=== PATIENT | female | born 1960 | race Caucasian/White ===

== ENCOUNTER 2022-07-11 04:20 | Inpatient (IN) ==
--- NOTE | 2022-07-11 04:40 | Emergency Department Note ---
ED Provider Note History of Present Illness Chief Complaint: Chest Pain Stated Complaint: CHEST PAIN Time Seen by Provider: 07/11/22 04:25 Source: patient Mode of arrival: ambulatory Limitations: no limitations This patient is a 62-year-old female who presents to the emergency department for evaluation of chest pain. Patient states that she was sitting in a chair when she developed midsternal chest pain with radiation to her left shoulder and left arm. She rates her current discomfort a 6/10 and states it feels like a pressure. Symptoms have been constant. She states that she feels like there is a band around her upper abdomen into her back. She tried Pepcid and Gas-X without relief. She has noticed some swelling in the lower extremities. She denies dizziness, nausea, shortness of breath or diaphoresis. Patient denies any cardiac history. She is on a diuretic and Topamax for weight loss. Home Medications Medication Instructions Recorded Confirmed Type cetirizine 10 mg tablet (Zyrtec) 10 mg PO DAILY PRN Allergy Symptoms 05/13/18 07/11/22 History fluticasone propionate 50 2 spray intranasal DAILY PRN 05/13/18 07/11/22 History mcg/actuation nasal Allergy Symptoms spray,suspension (Flonase Allergy Relief) spironolactone 25 mg tablet 25 mg PO BID 07/11/22 07/11/22 History topiramate 25 mg tablet 25 mg PO BID 07/11/22 07/11/22 History Allergies Allergy/AdvReac Type Severity Reaction Status Date / Time No Known Allergies Allergy Unknown Verified 07/11/22 07:27 Past Med/Surg History Medical History (Updated 07/14/22 @ 21:01 by Sera Helton PA-C) Acute cholecystitis Dermatitis Seasonal allergies Social History Smoking Status: Never smoker Hx Alcohol Use: Yes Alcohol type: beer, wine and hard liquor Hx Substance Use: No Preferred Language: Chinese Communication Ability: Effective It Risk Analyst Required: No Beliefs That Will Affect Care: None Current Living Situation: Spouse current occupational status: employed Other Information That Helps Us Care for You: No Feels Safe at Home: Yes Assistive Devices: None Physical Exam Vital Signs Vital Signs - 24 hr 07/13/22 21:09 07/13/22 21:10 07/13/22 21:00 Temperature 37.6 C H Temperature Source Oral Pulse Rate 92 H Pulse Rate [Left Finger] 86 Respiratory Rate 16 16 Respiratory Effort / Characteristics Respiratory Depth Respiratory Pattern Blood Pressure 127/75 Blood Pressure [Left Arm] 127/76 Blood Pressure Mean 92 Blood Pressure Mean [Left Arm] 93 Blood Pressure Position Lying Blood Pressure Position [Left Arm] Pulse Oximetry 98 96 Oxygen Delivery Method Nasal Cannula Oxygen Flow Rate 2 2.0 EWS Level of Consciousness - Last Result Spontaneously Alert EWS Temperature - Last Result 37.3 EWS Respiratory Rate - Last Result 16 EWS Oxygen Saturation - Last Result 98 EWS Oxygen in Use - Last Result Yes EWS Score 0 EWS Clinical Risk Low Risk 07/13/22 22:30 07/13/22 23:43 07/13/22 23:43 Temperature 37.6 C H 37.3 C 37.3 C Temperature Source Oral Oral Oral Pulse Rate 92 H 91 H 91 H Pulse Rate [Left Finger] Respiratory Rate 16 16 16 Respiratory Effort / Characteristics Respiratory Depth Respiratory Pattern Blood Pressure 129/76 119/72 119/72 Blood Pressure [Left Arm] Blood Pressure Mean 93 87 87 Blood Pressure Mean [Left Arm] Blood Pressure Position Lying Blood Pressure Position [Left Arm] Pulse Oximetry 96 95 95 Oxygen Delivery Method Oxygen Flow Rate 2.0 2 2 EWS Level of Consciousness - Last Result EWS Temperature - Last Result EWS Respiratory Rate - Last Result EWS Oxygen Saturation - Last Result EWS Oxygen in Use - Last Result EWS Score EWS Clinical Risk 07/14/22 01:06 07/14/22 01:09 07/14/22 01:56 Temperature 37.1 C Temperature Source Oral Pulse Rate Pulse Rate [Left Finger] 88 85 Respiratory Rate 16 16 Respiratory Effort / Characteristics Respiratory Depth Respiratory Pattern Blood Pressure Blood Pressure [Left Arm] 103/65 112/72 Blood Pressure Mean Blood Pressure Mean [Left Arm] 77 85 Blood Pressure Position Blood Pressure Position [Left Arm] Pulse Oximetry 94 95 Oxygen Delivery Method Nasal Cannula Nasal Cannula Oxygen Flow Rate 2 2 EWS Level of Consciousness - Last Result Spontaneously Alert EWS Temperature - Last Result 37.1 EWS Respiratory Rate - Last Result 16 EWS Oxygen Saturation - Last Result 94 EWS Oxygen in Use - Last Result Yes EWS Score 2 EWS Clinical Risk Low Risk 07/14/22 04:35 07/14/22 06:05 07/14/22 07:19 Temperature 37.7 C H Temperature Source Oral Pulse Rate Pulse Rate [Left Finger] 85 85 84 Respiratory Rate 16 16 18 Respiratory Effort / Characteristics Respiratory Depth Respiratory Pattern Blood Pressure Blood Pressure [Left Arm] 114/74 117/73 117/74 Blood Pressure Mean Blood Pressure Mean [Left Arm] 87 87 88 Blood Pressure Position Blood Pressure Position [Left Arm] Lying Pulse Oximetry 95 94 94 Oxygen Delivery Method Nasal Cannula Nasal Cannula Nasal Cannula Oxygen Flow Rate 2 2 2 EWS Level of Consciousness - Last Result EWS Temperature - Last Result EWS Respiratory Rate - Last Result EWS Oxygen Saturation - Last Result EWS Oxygen in Use - Last Result EWS Score EWS Clinical Risk 07/14/22 07:20 07/14/22 07:33 Temperature Temperature Source Pulse Rate Pulse Rate [Left Finger] Respiratory Rate Respiratory Effort / Characteristics Non-Labored Spontaneous Respiratory Depth Normal Respiratory Pattern Regular Blood Pressure Blood Pressure [Left Arm] Blood Pressure Mean Blood Pressure Mean [Left Arm] Blood Pressure Position Blood Pressure Position [Left Arm] Pulse Oximetry Oxygen Delivery Method Nasal Cannula Oxygen Flow Rate 2 EWS Level of Consciousness - Last Result Spontaneously Alert EWS Temperature - Last Result 37.7 EWS Respiratory Rate - Last Result 18 EWS Oxygen Saturation - Last Result 94 EWS Oxygen in Use - Last Result Yes EWS Score 1 EWS Clinical Risk Low Risk VITALS: Vitals are noted on the nurse's note and reviewed by myself. Vital signs stable. GENERAL: This is a 62-year-old, in no acute distress, nondiaphoretic, well- developed well-nourished. SKIN: The skin was without rashes. EYES: Pupils equal round and reactive to light and accommodation. No scleral icterus. MOUTH: Mucous membranes moist. Tonsils are not enlarged. Pharynx without erythema or exudate. NECK: Supple without nuchal rigidity. No lymphadenopathy. HEART: Regular rate and rhythm without murmurs gallops or rubs. LUNGS: Clear to auscultation bilaterally without wheezes, rales or rhonchi. No retractions or accessory muscle use. ABDOMEN: Positive bowel sounds x 4. Soft, tenderness to palpation across upper abdomen. No guarding or rebound tenderness. NEURO: Patient was alert and oriented to person place and time. Course Administered Medications Lactated Ringer's (Lr) 1,000 mls @ 50 mls/hr IV .Q20H CEE Stop: 08/10/22 11:34 Last Infusion: 07/14/22 10:33 Dose: 50 mls/hr Documented By: Admin: 07/14/22 10:31 Dose: 100 mls/hr Documented By: Admin: 07/14/22 10:31 Dose: Not Given Documented By: Infusion: 07/14/22 09:26 Dose: 100 mls/hr Documented By: Admin: 07/13/22 23:26 Dose: 100 mls/hr Documented By: JUAN(2) Infusion: 07/13/22 23:25 Dose: 0 mls/hr Documented By: JUAN(2) Infusion: 07/13/22 20:18 Dose: 100 mls/hr Documented By: JUAN(2) Infusion: 07/13/22 16:52 Dose: 0 mls/hr Documented By: Admin: 07/13/22 07:45 Dose: 100 mls/hr Documented By: Infusion: 07/13/22 06:23 Dose: 100 mls/hr Documented By: Admin: 07/12/22 20:23 Dose: 100 mls/hr Documented By: JUAN(2) Infusion: 07/12/22 18:08 Dose: 0 mls/hr Documented By: JUAN(2) Admin: 07/12/22 08:08 Dose: 100 mls/hr Documented By: Infusion: 07/12/22 07:59 Dose: 100 mls/hr Documented By: Admin: 07/11/22 21:59 Dose: 100 mls/hr Documented By: Infusion: 07/11/22 21:59 Dose: 100 mls/hr Documented By: Admin: 07/11/22 12:03 Dose: 100 mls/hr Documented By: ROBBI Famotidine 20 mg/ Syringe 5 mls @ 2.5 mls/min IV Q12H [facility] Stop: 08/10/22 17:59 Last Admin: 07/14/22 17:52 Dose: 2.5 mls/min Documented By: Admin: 07/14/22 06:03 Dose: 2.5 mls/min Documented By: JUAN(2) Admin: 07/13/22 18:24 Dose: 2.5 mls/min Documented By: Admin: 07/13/22 05:10 Dose: 2.5 mls/min Documented By: JUAN(2) Admin: 07/12/22 18:29 Dose: 2.5 mls/min Documented By: Admin: 07/12/22 05:52 Dose: 2.5 mls/min Documented By: Admin: 07/11/22 17:30 Dose: 2.5 mls/min Documented By: ROBBI Piperacillin Sod/Tazobactam (Sod 3.375 gm/ Dextrose) 115 mls @ 28.75 mls/hr IV Q8H CEE; Protocol Stop: 07/23/22 14:59 Last Infusion: 07/14/22 19:30 Dose: 0 mls/hr Documented By: JUAN(2) Admin: 07/14/22 15:16 Dose: 28.8 mls/hr Documented By: Infusion: 07/14/22 10:14 Dose: 0 mls/hr Documented By: Admin: 07/14/22 06:02 Dose: 28.8 mls/hr Documented By: JUAN(2) Infusion: 07/14/22 03:25 Dose: 0 mls/hr Documented By: JUAN(2) Admin: 07/13/22 23:25 Dose: 28.8 mls/hr Documented By: JUAN(2) Infusion: 07/13/22 20:10 Dose: 0 mls/hr Documented By: JUAN(2) Infusion: 07/13/22 18:57 Dose: 28.8 mls/hr Documented By: Infusion: 07/13/22 18:24 Dose: 0 mls/hr Documented By: Admin: 07/13/22 15:37 Dose: 28.8 mls/hr Documented By: JUAN Lorazepam (Lorazepam 0.5 Mg Tab) 0.5 mg PO Q6H PRN PRN Reason: Anxiety Stop: 08/13/22 12:44 Last Admin: 07/14/22 16:31 Dose: 0.5 mg Documented By: JUAN Morphine Sulfate (Morphine Sulfate 4 Mg/Ml 1 Ml Carp\Vial) 4 mg IV Q3H PRN PRN Reason: Pain (6,7,8,9,10) Stop: 07/25/22 11:34 Last Admin: 07/12/22 23:13 Dose: 4 mg Documented By: JUAN(2) Admin: 07/12/22 18:29 Dose: 4 mg Documented By: Admin: 07/12/22 13:25 Dose: 4 mg Documented By: Admin: 07/12/22 08:57 Dose: 4 mg Documented By: Admin: 07/12/22 01:49 Dose: 4 mg Documented By: Admin: 07/11/22 21:50 Dose: 4 mg Documented By: Admin: 07/11/22 14:49 Dose: 4 mg Documented By: ROBBI Morphine Sulfate (Morphine Sulfate 2 Mg/Ml Carp) 2 mg IV Q3H PRN PRN Reason: Pain (1,2,3,4,5) & Pre PT Stop: 07/25/22 11:34 Last Admin: 07/13/22 05:12 Dose: 2 mg Documented By: JUAN(2) Ondansetron HCl (Ondansetron Inj 2 Mg/Ml 2 Ml Vial) 4 mg IV Q4H PRN PRN Reason: Nausea And Vomiting Stop: 08/10/22 11:34 Last Admin: 07/12/22 13:25 Dose: 4 mg Documented By: Admin: 07/11/22 17:51 Dose: 4 mg Documented By: ROBBI Oxycodone/Acetaminophen (Oxycodone/Acetaminophen 5mg/325mg Tab) 2 tab PO Q4H PRN PRN Reason: SEVERE Pain (7,8,9,10) Stop: 07/25/22 11:34 Last Admin: 07/14/22 17:52 Dose: 2 tab Documented By: Admin: 07/13/22 23:22 Dose: 2 tab Documented By: JUAN(2) Oxycodone/Acetaminophen (Oxycodone/Acetaminophen 5mg/325mg Tab) 1 tab PO Q4H PRN PRN Reason: MODERATE Pain (4,5,6) & Pre PT Stop: 07/25/22 11:34 Last Admin: 07/13/22 13:53 Dose: 1 tab Documented By: Admin: 07/12/22 03:23 Dose: 1 tab Documented By: Admin: 07/11/22 18:33 Dose: 1 tab Documented By: ROBBI Spironolactone (Spironolactone 25 Mg Tab) 25 mg PO BID [facility] Stop: 08/10/22 20:59 Last Admin: 07/14/22 20:49 Dose: Not Given Documented By: JUAN(2) Admin: 07/14/22 07:42 Dose: Not Given Documented By: Admin: 07/13/22 20:04 Dose: Not Given Documented By: JUAN(2) Admin: 07/13/22 09:35 Dose: Not Given Documented By: Admin: 07/12/22 20:29 Dose: Not Given Documented By: JUAN(2) Admin: 07/12/22 08:10 Dose: Not Given Documented By: Admin: 07/11/22 23:12 Dose: Not Given Documented By: NEFTALI Topiramate (Topiramate 25 Mg Tab) 25 mg PO BID CEE Stop: 08/10/22 20:59 Last Admin: 07/14/22 20:49 Dose: Not Given Documented By: JUAN(2) Admin: 07/14/22 07:42 Dose: Not Given Documented By: Admin: 07/13/22 20:04 Dose: Not Given Documented By: JUAN(2) Admin: 07/13/22 09:35 Dose: Not Given Documented By: Admin: 07/12/22 20:29 Dose: Not Given Documented By: JUAN(2) Admin: 07/12/22 08:11 Dose: Not Given Documented By: Admin: 07/11/22 21:34 Dose: 25 mg Documented By: NEFTALI Discontinued Medications Al Hydrox/Mg Hydrox/Simethicone (Gi Cocktail Ed Use) 1 dose PO ONE ONE Stop: 07/11/22 06:05 Last Admin: 07/11/22 06:18 Dose: 1 dose Documented By: PETERSON Bupivacaine HCl/Epinephrine Bitart (Bupivacaine/Epinephrine 0.5% Mpf 1:200,000 30 Ml Vial) Confirm Administered Dose 30 ml .ROUTE .STK-MED ONE Stop: 07/11/22 08:06 Last Admin: 07/11/22 09:59 Dose: 30 ml Documented By: SHAKIRA Famotidine (Pepcid 20mg Iv Push) 20 mg in 5 mls @ 2.5 mls/min IV NOW STA Stop: 07/11/22 06:05 Last Admin: 07/11/22 06:18 Dose: 2.5 mls/min Documented By: PETERSON Cefoxitin Sodium 2,000 mg/ (Dextrose) 60 mls @ 100 mls/hr IV Q6H CEE Stop: 07/15/22 14:59 Last Admin: 07/13/22 09:36 Dose: Not Given Documented By: Infusion: 07/13/22 03:48 Dose: 0 mls/hr Documented By: JUAN(2) Admin: 07/13/22 03:12 Dose: 100 mls/hr Documented By: JUAN(2) Infusion: 07/12/22 21:05 Dose: 0 mls/hr Documented By: JUAN(2) Admin: 07/12/22 20:29 Dose: 100 mls/hr Documented By: JUAN(2) Infusion: 07/12/22 16:22 Dose: 0 mls/hr Documented By: Admin: 07/12/22 15:39 Dose: 100 mls/hr Documented By: Infusion: 07/12/22 08:59 Dose: 0 mls/hr Documented By: Admin: 07/12/22 08:09 Dose: 100 mls/hr Documented By: Infusion: 07/12/22 03:59 Dose: 0 mls/hr Documented By: Admin: 07/12/22 03:19 Dose: 100 mls/hr Documented By: Infusion: 07/11/22 23:13 Dose: 0 mls/hr Documented By: Admin: 07/11/22 21:51 Dose: 100 mls/hr Documented By: Infusion: 07/11/22 15:34 Dose: 0 mls/hr Documented By: Admin: 07/11/22 14:49 Dose: 100 mls/hr Documented By: ROBBI Piperacillin Sod/Tazobactam (Sod 3.375 gm/ Dextrose) 115 mls @ 230 mls/hr IV NOW ONE; Protocol Stop: 07/13/22 09:59 Last Infusion: 07/13/22 11:41 Dose: 0 mls/hr Documented By: Admin: 07/13/22 11:06 Dose: 230 mls/hr Documented By: JUAN Ioversol (Optiray 350 100ml) 90 ml IV ONCE ONE Stop: 07/11/22 05:34 Last Admin: 07/11/22 05:33 Dose: 90 ml Documented By: FLOYD Ketorolac Tromethamine (Ketorolac Tromethamine 15 Mg/Ml Vial) 15 mg IV NOW STA Stop: 07/11/22 06:52 Last Admin: 07/11/22 06:55 Dose: 15 mg Documented By: Ondansetron HCl (Ondansetron Inj 2 Mg/Ml 2 Ml Vial) 4 mg IV NOW STA Stop: 07/11/22 05:08 Last Admin: 07/11/22 05:17 Dose: 4 mg Documented By: BEN Potassium Chloride (Potassium Chloride Crtab 20 Meq Tabcr) 40 meq PO NOW STA Stop: 07/11/22 14:03 Last Admin: 07/11/22 14:49 Dose: 40 meq Documented By: ROBBI Medical Decision Making Differential Diagnosis Cardiac ischemia, aortic dissection, pulmonary embolism, pneumothorax, pneumonia, pericarditis, myocarditis, esophageal rupture, GERD, cholecystitis, pancreatitis, musculoskeletal, as well as other pathologies. Home Medications was personally reviewed by me Laboratory Data Attestation: I reviewed the patient's lab results. 07/11/22 04:35 07/11/22 04:35 Lab Results 07/11/22 07/11/22 07/11/22 Range/Units 04:35 04:35 07:02 WBC 10.42 (4.8-10.8) K/ul RBC 4.67 (4.20-5.40) M/uL Hgb 13.8 (12.0-16.0) g/dl Hct 41.5 (37.0-47.0) % MCV 88.9 (80.0-100.0) fL MCH 29.6 (25.0-34.0) pg MCHC 33.3 (32.0-36.0) g/dL RDW Std Deviation 41.7 (36.4-46.3) fL RDW Coeff of Sea 12.9 (11.5-14.5) % Plt Count 399 (130-400) K/uL MPV 10.2 (9.4-12.4) fL Immature Gran % (Auto) 0.6 % Neut % (Auto) 75.9 % Lymph % (Auto) 16.2 % [place] % (Auto) 5.5 % Eos % (Auto) 1.2 % Baso % (Auto) 0.6 % Neut # (Auto) 7.92 H (1.40-6.50) K/uL Lymph # (Auto) 1.69 (1.2-3.4) K/uL [place] # (Auto) 0.57 (0.11-0.59) K/uL Eos # (Auto) 0.12 (0-0.50) K/uL Baso # (Auto) 0.06 (0-0.2) K/uL Immature Gran # (Auto) 0.06 (0.01-0.20) K/uL Absolute Nucleated RBC (0-0.12) K/uL Nucleated RBC % (auto) % Polychromasia PT (9.0-12.0) Seconds INR (0.9-1.1) APTT (21.0-31.0) Seconds PTT Ratio Sodium 137 (136-145) mmol/L Potassium 3.9 (3.5-5.1) mmol/L Chloride 104 (98-107) mmol/L Carbon Dioxide 26 (21-32) mmol/L Anion Gap 7 (3-11) BUN 19 (6-23) mg/dl Creatinine 0.88 (0.6-1.2) mg/dl Est Cr Clr Drug Dosing 86.1 ml/min Est GFR ( Amer) 82.8 ml/min Est GFR (Non-Af Amer) 71.4 ml/min BUN/Creatinine Ratio 21.6 H (10-20) Glucose 179 H (70-99(Fasting)) mg/dl Calcium 9.3 (8.5-10.1) mg/dl Total Bilirubin 0.3 (0.2-1.0) mg/dl AST 14 (13-39) U/L ALT 15 (7-52) U/L Alkaline Phosphatase 81 (34-104) U/L Troponin I High Sens 5.2 (0-14) pg/ml Total Protein 7.9 (6.0-8.3) gm/dl Albumin 4.3 (3.4-5.0) gm/dl Globulin 3.6 (2.5-4.0) gm/dl Albumin/Globulin Ratio 1.2 (0.9-2) Lipase 21 (11-82) U/L Urine Color Yellow Urine Appearance Clear (Clear) Urine pH 7.0 (4.5-7.5) Ur Specific [place] > 1.045 H (1.000-1.030) Urine Protein Negative (Negative) Urine Glucose (UA) Negative (Negative) Urine Ketones Negative (Negative) Urine Blood Negative (Negative) Urine Nitrite Negative (Negative) Urine Bilirubin Negative (Negative) Urine Urobilinogen Negative (Negative) Ur Leukocyte Esterase Negative (Negative) SARS-CoV-2, RNA, NAAT (NEGATIVE) Blood Type Blood Type Recheck Antibody Screen Crossmatch 07/11/22 07/11/22 07/12/22 Range/Units 07:26 21:42 03:40 WBC 18.33 H 18.44 H (4.8-10.8) K/ul RBC 3.60 L 3.34 L (4.20-5.40) M/uL Hgb 10.6 L D 9.9 L (12.0-16.0) g/dl Hct 32.4 L 30.2 L (37.0-47.0) % MCV 90.0 90.4 (80.0-100.0) fL MCH 29.4 29.6 (25.0-34.0) pg MCHC 32.7 32.8 (32.0-36.0) g/dL RDW Std Deviation 42.3 42.4 (36.4-46.3) fL RDW Coeff of Sea 12.9 13.0 (11.5-14.5) % Plt Count 467 H 468 H (130-400) K/uL MPV 9.9 10.5 (9.4-12.4) fL Immature Gran % (Auto) % Neut % (Auto) % Lymph % (Auto) % [place] % (Auto) % Eos % (Auto) % Baso % (Auto) % Neut # (Auto) (1.40-6.50) K/uL Lymph # (Auto) (1.2-3.4) K/uL [place] # (Auto) (0.11-0.59) K/uL Eos # (Auto) (0-0.50) K/uL Baso # (Auto) (0-0.2) K/uL Immature Gran # (Auto) (0.01-0.20) K/uL Absolute Nucleated RBC (0-0.12) K/uL Nucleated RBC % (auto) % Polychromasia PT (9.0-12.0) Seconds INR (0.9-1.1) APTT (21.0-31.0) Seconds PTT Ratio Sodium (136-145) mmol/L Potassium (3.5-5.1) mmol/L Chloride (98-107) mmol/L Carbon Dioxide (21-32) mmol/L Anion Gap (3-11) BUN (6-23) mg/dl Creatinine (0.6-1.2) mg/dl Est Cr Clr Drug Dosing ml/min Est GFR ( Amer) ml/min Est GFR (Non-Af Amer) ml/min BUN/Creatinine Ratio (10-20) Glucose (70-99(Fasting)) mg/dl Calcium (8.5-10.1) mg/dl Total Bilirubin (0.2-1.0) mg/dl AST (13-39) U/L ALT (7-52) U/L Alkaline Phosphatase (34-104) U/L Troponin I High Sens (0-14) pg/ml Total Protein (6.0-8.3) gm/dl Albumin (3.4-5.0) gm/dl Globulin (2.5-4.0) gm/dl Albumin/Globulin Ratio (0.9-2) Lipase (11-82) U/L Urine Color Urine Appearance (Clear) Urine pH (4.5-7.5) Ur Specific [place] (1.000-1.030) Urine Protein (Negative) Urine Glucose (UA) (Negative) Urine Ketones (Negative) Urine Blood (Negative) Urine Nitrite (Negative) Urine Bilirubin (Negative) Urine Urobilinogen (Negative) Ur Leukocyte Esterase (Negative) SARS-CoV-2, RNA, NAAT NEGATIVE (NEGATIVE) Blood Type Blood Type Recheck Antibody Screen Crossmatch 07/12/22 07/12/22 07/12/22 Range/Units 11:50 19:42 23:38 WBC (4.8-10.8) K/ul RBC (4.20-5.40) M/uL Hgb 9.5 L 8.5 L (12.0-16.0) g/dl Hct 29.3 L 26.2 L (37.0-47.0) % MCV (80.0-100.0) fL MCH (25.0-34.0) pg MCHC (32.0-36.0) g/dL RDW Std Deviation (36.4-46.3) fL RDW Coeff of Sea (11.5-14.5) % Plt Count (130-400) K/uL MPV (9.4-12.4) fL Immature Gran % (Auto) % Neut % (Auto) % Lymph % (Auto) % [place] % (Auto) % Eos % (Auto) % Baso % (Auto) % Neut # (Auto) (1.40-6.50) K/uL Lymph # (Auto) (1.2-3.4) K/uL [place] # (Auto) (0.11-0.59) K/uL Eos # (Auto) (0-0.50) K/uL Baso # (Auto) (0-0.2) K/uL Immature Gran # (Auto) (0.01-0.20) K/uL Absolute Nucleated RBC (0-0.12) K/uL Nucleated RBC % (auto) % Polychromasia PT (9.0-12.0) Seconds INR (0.9-1.1) APTT (21.0-31.0) Seconds PTT Ratio Sodium (136-145) mmol/L Potassium (3.5-5.1) mmol/L Chloride (98-107) mmol/L Carbon Dioxide (21-32) mmol/L Anion Gap (3-11) BUN (6-23) mg/dl Creatinine (0.6-1.2) mg/dl Est Cr Clr Drug Dosing ml/min Est GFR ( Amer) ml/min Est GFR (Non-Af Amer) ml/min BUN/Creatinine Ratio (10-20) Glucose (70-99(Fasting)) mg/dl Calcium (8.5-10.1) mg/dl Total Bilirubin (0.2-1.0) mg/dl AST (13-39) U/L ALT (7-52) U/L Alkaline Phosphatase (34-104) U/L Troponin I High Sens (0-14) pg/ml Total Protein (6.0-8.3) gm/dl Albumin (3.4-5.0) gm/dl Globulin (2.5-4.0) gm/dl Albumin/Globulin Ratio (0.9-2) Lipase (11-82) U/L Urine Color Urine Appearance (Clear) Urine pH (4.5-7.5) Ur Specific [place] (1.000-1.030) Urine Protein (Negative) Urine Glucose (UA) (Negative) Urine Ketones (Negative) Urine Blood (Negative) Urine Nitrite (Negative) Urine Bilirubin (Negative) Urine Urobilinogen (Negative) Ur Leukocyte Esterase (Negative) SARS-CoV-2, RNA, NAAT (NEGATIVE) Blood Type O Positive Blood Type Recheck Antibody Screen NEGATIVE Crossmatch See Detail 07/13/22 07/13/22 07/13/22 Range/Units 05:38 05:38 05:38 WBC 17.95 H (4.8-10.8) K/ul RBC 2.65 L (4.20-5.40) M/uL Hgb 7.9 L (12.0-16.0) g/dl Hct 24.1 L (37.0-47.0) % MCV 90.9 (80.0-100.0) fL MCH 29.8 (25.0-34.0) pg MCHC 32.8 (32.0-36.0) g/dL RDW Std Deviation 42.6 (36.4-46.3) fL RDW Coeff of Sea 13.2 (11.5-14.5) % Plt Count 340 (130-400) K/uL MPV 10.2 (9.4-12.4) fL Immature Gran % (Auto) 1.0 % Neut % (Auto) 77.0 % Lymph % (Auto) 10.7 % [place] % (Auto) 10.9 % Eos % (Auto) 0.1 % Baso % (Auto) 0.3 % Neut # (Auto) 13.83 H (1.40-6.50) K/uL Lymph # (Auto) 1.92 (1.2-3.4) K/uL [place] # (Auto) 1.95 H (0.11-0.59) K/uL Eos # (Auto) 0.01 (0-0.50) K/uL Baso # (Auto) 0.06 (0-0.2) K/uL Immature Gran # (Auto) 0.18 (0.01-0.20) K/uL Absolute Nucleated RBC (0-0.12) K/uL Nucleated RBC % (auto) % Polychromasia 1+ PT 10.5 (9.0-12.0) Seconds INR 1.0 (0.9-1.1) APTT 23.9 (21.0-31.0) Seconds PTT Ratio 0.9 Sodium 135 L (136-145) mmol/L Potassium 5.2 H (3.5-5.1) mmol/L Chloride 106 (98-107) mmol/L Carbon Dioxide 28 (21-32) mmol/L Anion Gap 1 L (3-11) BUN 34 H (6-23) mg/dl Creatinine 0.89 (0.6-1.2) mg/dl Est Cr Clr Drug Dosing 85.1 ml/min Est GFR ( Amer) 81.6 ml/min Est GFR (Non-Af Amer) 70.4 ml/min BUN/Creatinine Ratio 38.2 H (10-20) Glucose 125 H (70-99(Fasting)) mg/dl Calcium 8.3 L (8.5-10.1) mg/dl Total Bilirubin 0.5 (0.2-1.0) mg/dl AST 28 (13-39) U/L ALT 49 (7-52) U/L Alkaline Phosphatase 59 (34-104) U/L Troponin I High Sens (0-14) pg/ml Total Protein 6.1 (6.0-8.3) gm/dl Albumin 3.4 (3.4-5.0) gm/dl Globulin 2.7 (2.5-4.0) gm/dl Albumin/Globulin Ratio 1.3 (0.9-2) Lipase (11-82) U/L Urine Color Urine Appearance (Clear) Urine pH (4.5-7.5) Ur Specific [place] (1.000-1.030) Urine Protein (Negative) Urine Glucose (UA) (Negative) Urine Ketones (Negative) Urine Blood (Negative) Urine Nitrite (Negative) Urine Bilirubin (Negative) Urine Urobilinogen (Negative) Ur Leukocyte Esterase (Negative) SARS-CoV-2, RNA, NAAT (NEGATIVE) Blood Type Blood Type Recheck Antibody Screen Crossmatch 07/13/22 07/13/22 07/13/22 Range/Units 11:54 11:54 19:55 WBC (4.8-10.8) K/ul RBC (4.20-5.40) M/uL Hgb 7.2 L 8.0 L (12.0-16.0) g/dl Hct 22.4 L 24.8 L (37.0-47.0) % MCV (80.0-100.0) fL MCH (25.0-34.0) pg MCHC (32.0-36.0) g/dL RDW Std Deviation (36.4-46.3) fL RDW Coeff of [place] (11.5-14.5) % Plt Count (130-400) K/uL MPV (9.4-12.4) fL Immature Gran % (Auto) % Neut % (Auto) % Lymph % (Auto) % [place] % (Auto) % Eos % (Auto) % Baso % (Auto) % Neut # (Auto) (1.40-6.50) K/uL Lymph # (Auto) (1.2-3.4) K/uL [place] # (Auto) (0.11-0.59) K/uL Eos # (Auto) (0-0.50) K/uL Baso # (Auto) (0-0.2) K/uL Immature Gran # (Auto) (0.01-0.20) K/uL Absolute Nucleated RBC (0-0.12) K/uL Nucleated RBC % (auto) % Polychromasia PT (9.0-12.0) Seconds INR (0.9-1.1) APTT (21.0-31.0) Seconds PTT Ratio Sodium (136-145) mmol/L Potassium (3.5-5.1) mmol/L Chloride (98-107) mmol/L Carbon Dioxide (21-32) mmol/L Anion Gap (3-11) BUN (6-23) mg/dl Creatinine (0.6-1.2) mg/dl Est Cr Clr Drug Dosing ml/min Est GFR ( Amer) ml/min Est GFR (Non-Af Amer) ml/min BUN/Creatinine Ratio (10-20) Glucose (70-99(Fasting)) mg/dl Calcium (8.5-10.1) mg/dl Total Bilirubin (0.2-1.0) mg/dl AST (13-39) U/L ALT (7-52) U/L Alkaline Phosphatase (34-104) U/L Troponin I High Sens (0-14) pg/ml Total Protein (6.0-8.3) gm/dl Albumin (3.4-5.0) gm/dl Globulin (2.5-4.0) gm/dl Albumin/Globulin Ratio (0.9-2) Lipase (11-82) U/L Urine Color Urine Appearance (Clear) Urine pH (4.5-7.5) Ur Specific [place] (1.000-1.030) Urine Protein (Negative) Urine Glucose (UA) (Negative) Urine Ketones (Negative) Urine Blood (Negative) Urine Nitrite (Negative) Urine Bilirubin (Negative) Urine Urobilinogen (Negative) Ur Leukocyte Esterase (Negative) SARS-CoV-2, RNA, NAAT (NEGATIVE) Blood Type Blood Type Recheck O Positive Antibody Screen Crossmatch 07/14/22 07/14/22 Range/Units 07:58 07:58 WBC 13.66 H (4.8-10.8) K/ul RBC 3.01 L (4.20-5.40) M/uL Hgb 8.9 L (12.0-16.0) g/dl Hct 27.2 L (37.0-47.0) % MCV 90.4 (80.0-100.0) fL MCH 29.6 (25.0-34.0) pg MCHC 32.7 (32.0-36.0) g/dL RDW Std Deviation 45.1 (36.4-46.3) fL RDW Coeff of Sea 13.8 (11.5-14.5) % Plt Count 248 (130-400) K/uL MPV 10.0 (9.4-12.4) fL Immature Gran % (Auto) 1.0 % Neut % (Auto) 75.0 % Lymph % (Auto) 12.0 % [place] % (Auto) 10.7 % Eos % (Auto) 0.8 % Baso % (Auto) 0.5 % Neut # (Auto) 10.25 H (1.40-6.50) K/uL Lymph # (Auto) 1.64 (1.2-3.4) K/uL [place] # (Auto) 1.46 H (0.11-0.59) K/uL Eos # (Auto) 0.11 (0-0.50) K/uL Baso # (Auto) 0.07 (0-0.2) K/uL Immature Gran # (Auto) 0.13 (0.01-0.20) K/uL Absolute Nucleated RBC 0.02 (0-0.12) K/uL Nucleated RBC % (auto) 0.1 % Polychromasia PT (9.0-12.0) Seconds INR (0.9-1.1) APTT (21.0-31.0) Seconds PTT Ratio Sodium 136 (136-145) mmol/L Potassium 4.4 (3.5-5.1) mmol/L Chloride 103 (98-107) mmol/L Carbon Dioxide 32 (21-32) mmol/L Anion Gap 1 L (3-11) BUN 18 (6-23) mg/dl Creatinine 0.56 L D (0.6-1.2) mg/dl Est Cr Clr Drug Dosing 135.2 ml/min Est GFR ( Amer) 117.5 ml/min Est GFR (Non-Af Amer) 101.3 ml/min BUN/Creatinine Ratio 32.1 H (10-20) Glucose 112 H (70-99(Fasting)) mg/dl Calcium 8.1 L (8.5-10.1) mg/dl Total Bilirubin 0.7 (0.2-1.0) mg/dl AST 20 (13-39) U/L ALT 36 (7-52) U/L Alkaline Phosphatase 54 (34-104) U/L Troponin I High Sens (0-14) pg/ml Total Protein 5.6 L (6.0-8.3) gm/dl Albumin 3.1 L (3.4-5.0) gm/dl Globulin 2.5 (2.5-4.0) gm/dl Albumin/Globulin Ratio 1.2 (0.9-2) Lipase (11-82) U/L Urine Color Urine Appearance (Clear) Urine pH (4.5-7.5) Ur Specific [place] (1.000-1.030) Urine Protein (Negative) Urine Glucose (UA) (Negative) Urine Ketones (Negative) Urine Blood (Negative) Urine Nitrite (Negative) Urine Bilirubin (Negative) Urine Urobilinogen (Negative) Ur Leukocyte Esterase (Negative) SARS-CoV-2, RNA, NAAT (NEGATIVE) Blood Type Blood Type Recheck Antibody Screen Crossmatch Imaging Data Attestation: I personally reviewed and interpreted this imaging study as follows: Radiologist's Impression: Cholangiopancreatography MRI 07/14/22 09:29 MR MRCP HISTORY: 62 years-old Female POD#3 lap artem postop bleed, cont pain ?bile leak acute nausea with generalized abdominal pain status post cholecystectomy. COMPARISON: CT abdomen and pelvis 07/11/2022 TECHNIQUE: MRCP was obtained without the use of IV contrast utilizing institutional protocol. FINDINGS: Motion degraded exam. The study is also limited secondary to patient body habitus. Cardiomegaly. Small pleural effusions with dependent bibasilar consolidation favoring atelectasis. Degenerative changes are noted within the thoracolumbar spine with sigmoidal thoracolumbar scoliosis. Hepatic steatosis with hepatosplenomegaly. Mild to moderate pancreatic atrophy. Unremarkable adrenal glands and kidneys. No bowel obstruction or bowel wall thickening. Lateral abdominal wall subcutaneous edema is likely postoperative. Surgical drainage catheter is partially visualized. Postoperative changes of interval cholecystectomy. Air and fluid is noted within the tigre hepatis with small amount of fluid tracking along the inferior right hepatic lobe/pericolic gutter. No drainable fluid collection identified. Common bile duct measures 5 mm. Nondilated pancreatic duct. No choledocholithiasis or intrahepatic biliary ductal dilation. IMPRESSION: 1. Limited exam secondary to motion and patient body habitus. 2. Interval cholecystectomy with trace fluid and air within the tigre hepatis and small amount of fluid tracking along the right hepatic lobe and pericolic gutter, likely expected postoperative changes. 3. No postoperative drainable fluid collection. 4. Small pleural effusions. 5. No choledocholithiasis or biliary ductal dilation identified. ACT 112: Negative or not required by law. The above report was generated using voice recognition software. It may contain grammatical, syntax or spelling errors. Electronically signed by: Michael Barrios M.D. 07/14/2022 6:55 PM ECG Data Attestation: I personally reviewed and interpreted this ECG as follows: Indication: + chest pain Rate (beats per minute): 82 Rhythm: + normal sinus ECG Intervals/blocks: + Normal QRS ECG ST segments: + Normal ST segments Comparison ECG Date: no prior available MDM Narrative Continuous satellite project site monitor: Order was placed for continuous satellite project site monitor. Patient was placed on the satellite project site monitor. Patient was noted to be in normal sinus rhythm at an initial rate of 73 bpm. The patient is a 62-year-old female who presents today complaining of chest/abdominal pain. Labs revealed no leukocytosis, anemia or concerning electrolyte abnormalities. EKG shows a normal sinus rhythm without any ischemic changes. Troponin is not elevated, and do not feel that repeat troponin is necessary given duration of patient's symptoms of greater than 8 hours. Given patient's abdominal tenderness, a CT was performed which per my interpretation shows a distended gallbladder with stones. Radiology read is pending. Patient case was signed out to Joshua Hedrick PA-C at change of shift pending radiology read and surgical consultation. Impression Epigastric abdominal pain, Vomiting Discharge Plan Visit Data Chief Complaint: Chest Pain Stated Complaint: CHEST PAIN ED Provider: Rickie Colunga ED Midlevel Provider: Joshua Hedrick Discharge Problem: Epigastric abdominal pain, Vomiting Patient Disposition: Admitted As Inpatient Discharge Instructions Interventions: ED Discharge Assessment Last Done: 07/11/22 08:42
[2022-07-11 05:06] LABS: Basophils # (auto) 0.06 K/uL (0-0.2); Basophils % (auto) 0.6 %; Eosinophils # (auto) 0.12 K/uL (0-0.50); Eosinophils % (auto) 1.2 %; Hematocrit (blood only) 41.5 % (37.0-47.0); Hemoglobin 13.8 g/dl (12.0-16.0); Immature Granulocytes # (auto) 0.06 K/uL (0.01-0.20); Immature Granulocytes % (auto) 0.6 %; Lymphocytes # (auto) 1.69 K/uL (1.2-3.4); Lymphocytes % (auto) 16.2 %; Mean Corpuscular Hemoglobin 29.6 pg (25.0-34.0); Mean Corpuscular Hgb Conc 33.3 g/dL (32.0-36.0); Mean Corpuscular Volume 88.9 fL (80.0-100.0); Mean Platelet Volume 10.2 fL (9.4-12.4); Monocytes # (auto) 0.57 K/uL (0.11-0.59); Monocytes % (auto) 5.5 %; Neutrophils # (auto) 7.92 K/uL (1.40-6.50); Neutrophils % (auto) 75.9 %; Platelet Count 399 K/uL (130-400); RDW Coefficient of Variation 12.9 % (11.5-14.5); RDW Standard Deviation 41.7 fL (36.4-46.3); Red Blood Count 4.67 M/uL (4.20-5.40); White Blood Count 10.42 K/ul (4.8-10.8)
[2022-07-11] MEDS ORDERED: ONDANSETRON INJ 2 MG/ML 2 ML VIAL IV STA (05:07)
[2022-07-11 05:16] LABS: Albumin Globulin Ratio 1.2 (0.9-2); Albumin Level 4.3 gm/dl (3.4-5.0); BUN Creatinine Ratio 21.6 (10-20); Bilirubin,Total 0.3 mg/dl (0.2-1.0); Calcium 9.3 mg/dl (8.5-10.1); Creatinine Clr Calc Pharmacy 86.1 ml/min; Est GFR (African American) 82.8 ml/min; Est GFR (Non-African American) 71.4 ml/min; Globulin 3.6 gm/dl (2.5-4.0); Potassium 3.9 mmol/L (3.5-5.1); Total Protein 7.9 gm/dl (6.0-8.3)
[2022-07-11 05:22] LABS: Troponin I High Sensitivity 5.2 pg/ml (0-14)
[2022-07-11] MEDS ORDERED: OPTIRAY 350 100ml IV ONE (05:33)
[2022-07-11] MEDS ORDERED: GI COCKTAIL ED USE PO ONE (06:04)
[2022-07-11] MEDS ORDERED: FAMOTIDINE 20MG IV PUSH 20 MG/5 ML SYR IV STA (06:04)
[2022-07-11] MEDS ORDERED: KETOROLAC TROMETHAMINE 15 MG/ML VIAL IV STA (06:51)
--- NOTE | 2022-07-11 07:09 | CT Scan Report ---
Exam(s): CT ABDOMEN + PELVIS With Contrast IV Amt: 90 cc's EXAM: CT Abdomen and Pelvis With Intravenous Contrast CLINICAL HISTORY: Reason for exam: upper abdominal pain. TECHNIQUE: Axial computed tomography images of the abdomen and pelvis with intravenous contrast. Automated exposure control was utilized for the study. A dose lowering technique was utilized adhering to the principles of ALARA. CONTRAST: Patient received 90 cc's of IV contrast COMPARISON: No relevant prior studies available. FINDINGS: Lung bases: Unremarkable. No mass. No consolidation. ABDOMEN: Liver: There is diffuse fatty infiltration of the liver. Gallbladder and bile ducts: There is cholelithiasis. Gallbladder is mildly distended, measuring up to 14.1 cm in length. No ductal dilation. Pancreas: Unremarkable. No mass. No ductal dilation. Spleen: Unremarkable. No splenomegaly. Adrenals: Unremarkable. No mass. Kidneys and ureters: Unremarkable. No solid mass. No hydronephrosis. Stomach and bowel: Unremarkable. No obstruction. No mucosal thickening. PELVIS: Appendix: No findings to suggest acute appendicitis. Bladder: Unremarkable. No mass. Reproductive: Unremarkable as visualized. ABDOMEN and PELVIS: Intraperitoneal space: Unremarkable. No free air. No significant fluid collection. Bones/joints: Moderate degenerative disc disease changes seen in the lumbar spine. Posterior disc osteophyte complex seen at L1/2 and L4/5 junction. No acute fracture. No dislocation. Soft tissues: Unremarkable. Vasculature: Unremarkable. No abdominal aortic aneurysm. Lymph nodes: Unremarkable. No enlarged lymph nodes. IMPRESSION: 1. Cholelithiasis and mildly distended gallbladder. If clinically indicated this can be further assessed on ultrasound study. 2. Fatty liver Electronically signed by: Alfonos Rodriguez MD 07/11/22 07:08 AM
[2022-07-11 07:18] LABS: Appearance Urine Clear (Clear); Bilirubin Urine Negative (Negative); Blood Urine Negative (Negative); Color Urine Yellow; Glucose Urine UA Negative (Negative); Ketones Urine Negative (Negative); Leukocyte Esterase Urine Negative (Negative); Nitrite Urine Negative (Negative); Protein Urine Negative (Negative); Specific Gravity Urine > 1.045 (1.000-1.030); Urobilinogen Urine Negative (Negative)
[2022-07-11] MEDS ORDERED: ACETAMINOPHEN 1000 MG/100 ML IV IV ONE (08:04)
[2022-07-11] MEDS ORDERED: fentaNYL citrate 100 MCG/2 ML VIAL ONE (08:05)
[2022-07-11] MEDS ORDERED: MIDAZOLAM HCL 1 MG/ML 2ML VIAL ONE (08:05)
[2022-07-11] MEDS ORDERED: LIDOCAINE 2% MPF LOCAL 5 ML VIAL INFIL ONE (08:05)
[2022-07-11] MEDS ORDERED: PROPOFOL IV EMULSION 10 MG/ML 20 ML VIAL IV ONE (08:05)
[2022-07-11] MEDS ORDERED: ROCURONIUM BROMIDE 10 MG/ML 5 ML VIAL IV ONE ×2 (08:05→09:32)
[2022-07-11] MEDS ORDERED: BUPIVACAINE/EPINEPHRINE 0.5% MPF 1:200,000 30 ML VIAL ONE (08:05)
[2022-07-11] MEDS ORDERED: ONDANSETRON INJ 2 MG/ML 2 ML VIAL ONE (08:05)
[2022-07-11] MEDS ORDERED: SUCCINYLCHOLINE CHLORIDE 20 MG/ML 10 ML VIAL IV ONE (08:05)
--- NOTE | 2022-07-11 08:16 | XRay Report ---
XR chest 1V portable HISTORY: 62 years-old Female Chest pain, nonspecific acute chest pain COMPARISON: Chest radiograph 05/13/2018 TECHNIQUE: AP view of the chest FINDINGS: Cardiomediastinal and hilar silhouettes are unchanged. No pneumothorax, pleural effusion, airspace co nsolidation or overt pulmonary edema. Degenerative changes of the shoulders and spine. IMPRESSION: No acute process. ACT 112: Negative or not required by law. The above report was generated using voice recognition software. It may contain grammatical, syntax o r spelling errors. Electronically signed by: Michael Barrios M.D. 07/11/2022 8:15 AM
--- NOTE | 2022-07-11 08:38 | Anesthesiology Consultation ---
Date of Service July 11, 2022 Assessment & Plan Chart Review Chart Review: Acceptable Risk for Surgery Consults Requested none History Surgery Operation Date: 07/11/22 09:00 Proposed Procedures p Laparoscopic Cholecystectomy - Balwinder Jane MD Height/Weight Height: 5 ft 2 in Weight: 125.3 kg Allergies Allergy/AdvReac Type Severity Reaction Status Date / Time No Known Allergies Allergy Unknown Verified 07/11/22 07:27 Medications Home Medications Medication Instructions Recorded Confirmed Last Taken cetirizine 10 mg tablet (Zyrtec) 10 mg PO DAILY PRN Allergy Symptoms 05/13/18 07/11/22 Unknown fluticasone propionate 50 2 spray intranasal DAILY PRN 05/13/18 07/11/22 Unknown mcg/actuation nasal Allergy Symptoms spray,suspension (Flonase Allergy Relief) spironolactone 25 mg tablet 25 mg PO BID 07/11/22 07/11/22 07/10/22 topiramate 25 mg tablet 25 mg PO BID 07/11/22 07/11/22 07/10/22 Past Medical History Medical History Dermatitis Seasonal allergies Social History Smoking Status: Never smoker Physical Exam Vital Signs Last Vital Signs Temp 36.9 C 07/11/22 08:08 Pulse 89 07/11/22 08:08 Resp 24 07/11/22 08:08 BP 184/97 H 07/11/22 08:08 Pulse Ox 98 07/11/22 08:08 O2 Del Method Room Air 07/11/22 08:08 Testing Laboratory Results 07/11/22 04:35 07/11/22 04:35 Urine Color Yellow 07/11/22 07:02 Urine Appearance Clear (Clear) 07/11/22 07:02 Urine pH 7.0 (4.5-7.5) 07/11/22 07:02 Ur Specific [place] > 1.045 (1.000-1.030) H 07/11/22 07:02 Urine Protein Negative (Negative) 07/11/22 07:02 Urine Glucose (UA) Negative (Negative) 07/11/22 07:02 Urine Ketones Negative (Negative) 07/11/22 07:02 Urine Nitrite Negative (Negative) 07/11/22 07:02 Ur Leukocyte Esterase Negative (Negative) 07/11/22 07:02
--- NOTE | 2022-07-11 08:45 | Emergency Department Note ---
ED Visit Note Case signed out to me at shift change on 07/11/2022 from Sera Helton PA-C. Case signed out to me and at that time CT scan of the abdomen/pelvis had just resulted. Patient presents to us today with discomfort in the upper abdomen that began after eating last night that radiates into her chest and back region. I did review her tests. There is no leukocytosis or concerning anemia. No emergent metabolic disturbance. Mild hyperglycemia 179. Lipase normal. Urinalysis does not suggest infection. Troponin is within normal range. CT scan was obtained of the abdomen and pelvis and reveals cholelithiasis with some mild gallbladder distention. Her EKG reveals normal sinus rhythm at a rate of 82 bpm. QTc 420. QRS 88. No ST elevation. On examination she is tender in the right upper quadrant. I initially discussed the case with the hospitalist service to proceed with admission for further evaluation and management with suspected gallbladder etiology. I then discussed the case with the general surgeon, Dr. Jane. At this time plan is for potential operative intervention. Please refer to further documentation regarding her stay. .
--- NOTE | 2022-07-11 08:49 | History & Physical Report ---
Date of Service July 11, 2022 Assessment & Plan (1) Acute cholecystitis: Plan: IVF IV abx to OR for lap artem Present on Admission?: Yes History of Present Illness Primary Care Provider: NO PCP This patient is a 62-year-old female who came to ED for chest pain, it started last night and has been constant. She states that she feels like there is a band around her upper abdomen into her back. She tried Pepcid and Gas-X without relief. She has had some nausea but no vomiting. She has had similar pain in the past. Allergies Allergy/AdvReac Type Severity Reaction Status Date / Time No Known Allergies Allergy Unknown Verified 07/11/22 07:27 Home Medications Medication Instructions Recorded Confirmed Type cetirizine 10 mg tablet (Zyrtec) 10 mg PO DAILY PRN Allergy Symptoms 05/13/18 07/11/22 History fluticasone propionate 50 2 spray intranasal DAILY PRN 05/13/18 07/11/22 History mcg/actuation nasal Allergy Symptoms spray,suspension (Flonase Allergy Relief) spironolactone 25 mg tablet 25 mg PO BID 07/11/22 07/11/22 History topiramate 25 mg tablet 25 mg PO BID 07/11/22 07/11/22 History Past Med/Surg History Medical History (Updated 07/11/22 @ 08:50 by Balwinder Jane MD) Acute cholecystitis Dermatitis Seasonal allergies Social History Smoking Status: Never smoker Preferred Language: Wolof Communication Ability: Effective current occupational status: employed Feels Safe at Home: Yes Review of Systems + anorexia; no fever and no chills no problem reported no problem reported no cough and no dyspnea + chest pain + abdominal pain and + nausea; no vomiting and no change in bowel habits no dysuria + back pain no problem reported no problem reported no problem reported no problem reported no easy bleeding and no easy bruising Physical Exam Constitutional: WD/WN, vitals as above + overweight Eyes: PERRL, conjunctivae normal, anicteric sclerae ENMT: external ear and nose normal, oropharynx normal Neck: trachea midline Respiratory: normal respiratory effort, lungs clear to auscultation Cardiovascular: RRR, no murmur, no edema Gastrointestinal (Abdomen): Inspection/Auscultation: abdomen normal to inspe ction and normal bowel sounds; abdomen not distended Percussion/Palpation: + abdomen tender and abdomen soft; no guarding and abdomen not rigid Musculoskeletal: Head/Neck/Chest: normocephalic and head atraumatic Skin: no rashes, warm and dry Psychiatric: Orientation: alert and oriented x 3 ASA Classification ASA ASA2E Results & Data ([facility]) Vital Signs (Past 12 Hours) Vital Signs Temp Pulse Pulse Resp BP BP Pulse Ox 07/11/22 08:08 36.9 C 89 24 184/97 H 98 07/11/22 04:39 83 07/11/22 04:37 73 182/102 H 97 07/11/22 04:33 84 99 07/11/22 04:40 76 16 97 07/11/22 04:39 84 16 182/102 H 97 07/11/22 04:23 36.8 C 73 20 189/89 H 97 O2 Del Method 07/11/22 08:08 Room Air 07/11/22 04:39 07/11/22 04:37 07/11/22 04:33 07/11/22 04:40 Room Air 07/11/22 04:39 Room Air 07/11/22 04:23 Room Air Diagnostic Findings EXAM: CT Abdomen and Pelvis With Intravenous Contrast CLINICAL HISTORY: Reason for exam: upper abdominal pain. TECHNIQUE: Axial computed tomography images of the abdomen and pelvis with intravenous contrast. Automated exposure control was utilized for the study. A dose lowering technique was utilized adhering to the principles of ALARA. CONTRAST: Patient received 90 cc's of IV contrast COMPARISON: No relevant prior studies available. FINDINGS: Lung bases: Unremarkable. No mass. No consolidation. ABDOMEN: Liver: There is diffuse fatty infiltration of the liver. Gallbladder and bile ducts: There is cholelithiasis. Gallbladder is mildly distended, measuring up to 14.1 cm in length. No ductal dilation. Pancreas: Unremarkable. No mass. No ductal dilation. Spleen: Unremarkable. No splenomegaly. Adrenals: Unremarkable. No mass. Kidneys and ureters: Unremarkable. No solid mass. No hydronephrosis. Stomach and bowel: Unremarkable. No obstruction. No mucosal thickening. PELVIS: Appendix: No findings to suggest acute appendicitis. Bladder: Unremarkable. No mass. Reproductive: Unremarkable as visualized. ABDOMEN and PELVIS: Intraperitoneal space: Unremarkable. No free air. No significant fluid collection. Bones/joints: Moderate degenerative disc disease changes seen in the lumbar spine. Posterior disc osteophyte complex seen at L1/2 and L4/5 junction. No acute fracture. No dislocation. Soft tissues: Unremarkable. Vasculature: Unremarkable. No abdominal aortic aneurysm. Lymph nodes: Unremarkable. No enlarged lymph nodes. IMPRESSION: 1. Cholelithiasis and mildly distended gallbladder. If clinically indicated this can be further assessed on ultrasound study. 2. Fatty liver
[2022-07-11] MEDS ORDERED: ePHEDrine sulfate 50 MG/ML AMP IV PRN (09:04)
[2022-07-11] MEDS ORDERED: fentaNYL citrate 100 MCG/2 ML VIAL IV PRN (09:04)
[2022-07-11] MEDS ORDERED: ATROPINE SULFATE 0.1 MG/ML 10ML SYR IV PRN (09:04)
[2022-07-11] MEDS ORDERED: PROMETHAZINE HCL 12.5 MG in SODIUM CHLORIDE 0.9% 50 ML IV PRN (09:04)
[2022-07-11] MEDS ORDERED: ONDANSETRON INJ 2 MG/ML 2 ML VIAL IV PRN (09:04)
[2022-07-11] MEDS ORDERED: HYDROmorphone INJ 2 MG/ML SYR/VIAL IV PRN (09:04)
[2022-07-11] MEDS ORDERED: DEXAMETHASONE SOD INJ 4 MG/ML VIAL ONE (09:16)
[2022-07-11] MEDS ORDERED: SUGAMMADEX SODIUM 200 MG/2 ML VIAL IV ONE (09:52)
--- NOTE | 2022-07-11 10:11 | Post Operative Brief Note ---
Immediate Post Op Note v1 Date of Surgery July 11, 2022 Pre & Post Diagnosis Operation Date: 07/11/22 09:00 <No data on this case meets the specified criteria> I identified the patient and participated in the time-out.: Yes Procedure Operation Date: 07/11/22 09:00 <No data on this case meets the specified criteria> Surgeon Balwinder Jane MD Hemstitching Machine Operator none Estimated Blood Loss 35 Findings Consistent with Post-Op Diagnosis Drains Luis Angel Drain
--- NOTE | 2022-07-11 10:43 | Operative Report (OR) ---
DATE OF PROCEDURE: 07/11/2022 PREOPERATIVE DIAGNOSIS: Acute cholecystitis. POSTOPERATIVE DIAGNOSIS: Acute cholecystitis with hydrops of the gallbladder. PROCEDURE PERFORMED: Laparoscopic cholecystectomy. SURGEON: Balwinder Jane M.D. MECHANICAL ENGINEERING TEACHER: None. ANESTHESIA: General endotracheal with 0.5% Marcaine with epinephrine local. ESTIMATED BLOOD LOSS: 35 mL. DRAINS: Luis Angel drain left in the gallbladder fossa. SPECIMENS: Gallbladder and large stone sent for pathologic evaluation. COMPLICATIONS: None. INDICATIONS FOR PROCEDURE: This is a 62-year-old female admitted through the ED last night with work up for which initially was thought to be chest pain. A CT scan showed gallbladder with large stones and contracted. Consistent with acute cholecystitis. She continued to have symptoms and therefore w as evaluated for possible cholecystectomy. We talked with her in detail about the procedure includin g the risk of an open procedure, common duct injury, retained common bile duct stone, postop bile carla k, bleeding, and possible infection. She understands all this and wishes to proceed. DESCRIPTION OF PROCEDURE: The patient was taken to the OR with excellent general endotracheal anesth esia. Her abdomen was prepped and draped in normal sterile fashion. Transverse supraumbilical incis ion was made and dissection was taken down to identify the anterior fascia. Two Vicryl sutures were placed on either side of the midline fascia and this was then incised and entered the peritoneal cavi ty with a blunt Clara clamp. Goldy trocar was then inserted. Good pneumoperitoneum was achieved at 15 mmHg pressure. The patient was placed in head up and rolled to the left. An 11 subxiphoid and t wo 5 lateral ports were placed in normal fashion. Liver could be visualized and there was obvious fa tty liver. Gallbladder itself was also visualized and you could see the allison were edematous consist ent with acute cholecystitis. There was also appeared to be a large stone stuck in the neck. There was some edema in the allison and some adhesions and these were taken down with somewhat difficult diss ection secondary to the size of the liver and the intrahepatic component of it. The neck was grasped and retracted superiorly. The neck was then grasped and placed on tension. Electrocautery hook mason ng with hydrodissection was used to identify the structures. The cystic duct and cystic artery were identified. With meticulous dissection, which took majority of the case, the cystic duct and cystic artery were identified. There was also a large node of [place] identified. This was taken down. The cystic duct and cystic artery were then skeletonized. The medial and lateral window was created in t he gallbladder and gallbladder fossa showing the structures going straight to the gallbladder. Once this critical view was seen, 2 clips were placed proximally in the cystic artery and 1 distally and t he cystic artery was transected. Three clips were then placed proximally in the cystic duct and 1 di stally in the cystic duct and cystic duct was transected. Electrocautery hook was then used to remov e the gallbladder from the gallbladder fossa. There was some spillage of bile and 1 stone was dislod ged. This was grasped and removed along with the gallbladder in an Endobag. The gallbladder was sen t for pathologic evaluation. Pneumoperitoneum was reestablished. The abdomen was irrigated out and suctioned to clear. There was no active bleeding that could be noticed, but there probably was about 35 mL of blood loss. Two liters of saline were then used to irrigate out the belly and a Luis Angel drai n was then obtained. The Luis Angel drain was brought out from the lateral stab incisions and placed in t he gallbladder fossa. The pneumoperitoneum was decompressed. The drain was secured with nylon sutur e. Vicryl suture was used to close the fascial defect of the supraumbilical incision. Marcaine 0.5% with epinephrine local was used to create a local field block. Interrupted Vicryl was then used to close the skin. Steri-Strips and benzoin were used to reinforce the incision. Sterile dressings wer e applied. The patient tolerated the procedure without any complications. She will be sent to the ostoperative recovery for a period of observation. She will be sent to the floor for her care with d rain care and antibiotics for 24 hours. Job ID: [id number]
--- NOTE | 2022-07-11 11:24 | Anesthesiology Progress Note ---
Date of Service July 11, 2022 Anesthesia Post Procedure Vital Signs Vital Signs: Temp Pulse Pulse Pulse Resp BP BP 07/11/22 11:15 82 18 172/81 H 07/11/22 11:05 81 18 177/84 H 07/11/22 10:55 36.2 C L 89 20 172/89 H 07/11/22 10:45 88 20 171/87 H 07/11/22 10:35 86 20 175/86 H 07/11/22 10:28 36 C L 88 22 177/85 H 07/11/22 08:08 36.9 C 89 24 184/97 H 07/11/22 04:39 83 07/11/22 04:37 73 182/102 H 07/11/22 04:33 84 07/11/22 04:40 76 16 07/11/22 04:39 84 16 182/102 H 07/11/22 04:23 36.8 C 73 20 189/89 H Pulse Ox O2 Del Method O2 Flow Rate 07/11/22 11:15 95 Room Air 07/11/22 11:05 96 Room Air 07/11/22 10:55 95 Room Air 07/11/22 10:45 96 Room Air 07/11/22 10:35 99 Oxymask 7 07/11/22 10:28 99 Oxymask 12 07/11/22 08:08 98 Room Air 07/11/22 04:39 07/11/22 04:37 97 07/11/22 04:33 99 07/11/22 04:40 97 Room Air 07/11/22 04:39 97 Room Air 07/11/22 04:23 97 Room Air Pain Intensity Chest: Pain Intensity: 5 Transfer of Care Handoff Completed per policy Notes Mental Status: alert / awake / arousable and participated in evaluation Patient Amnestic to Procedure: Yes Nausea / Vomiting: adequately controlled Pain: adequately controlled Airway Patency, RR, SpO2: stable & adequate BP & HR: stable & adequate Hydration State: stable & adequate Anesthetic Complications: no major complications apparent
[2022-07-11] MEDS ORDERED: MoRPHine SULFATE 2 MG/ML CARP IV PRN (11:35)
[2022-07-11] MEDS ORDERED: IBUPROFEN 200 MG TAB PO PRN (11:35)
[2022-07-11] MEDS ORDERED: ACETAMINOPHEN 325 MG TAB PO PRN (11:35)
[2022-07-11] MEDS: LACTATED RINGER'S 1,000 ML IV SCH ×2 (12:03→21:59)
[2022-07-11] MEDS ORDERED: POTASSIUM CHLORIDE CRTAB 20 MEQ TABCR PO STA (14:02)
--- NOTE | 2022-07-11 14:44 | Electrocardiogram Report ---
Test Reason : Blood Pressure : / mmHG Vent. Rate : 082 BPM Atrial Rate : 082 BPM P-R Int : 148 ms QRS Dur : 088 ms QT Int : 360 ms P-R-T Axes : 010 001 054 degrees QTc Int : 420 ms Normal sinus rhythm Normal ECG No previous ECGs available Confirmed by Yuriy Salcedo ([id number]) on 07/11/2022 2:44:19 PM Referred By: REFERRED SELF Confirmed By:Yuriy Salcedo
[2022-07-11] MEDS: MoRPHine SULFATE 4 MG/ML 1 ML CARP\\VIAL IV PRN ×2 (14:49→21:50)
[2022-07-11] MEDS: cefOXitin 2,000 MG in DEXTROSE 5% 50 ML IV SCH ×2 (14:49→21:51)
[2022-07-11] MEDS: FAMOTIDINE 20 MG in SYRINGE 3 ML IV SCH (17:30)
[2022-07-11] MEDS: ONDANSETRON INJ 2 MG/ML 2 ML VIAL IV PRN (17:51)
[2022-07-11] MEDS: oxyCODONE/ACETAMINOPHEN 5mg/325mg TAB PO PRN (18:33)
[2022-07-11] MEDS: TOPIRAMATE 25 MG TAB PO SCH (21:34)
[2022-07-11 22:01] LABS: Hematocrit (blood only) 32.4 % (37.0-47.0); Hemoglobin 10.6 g/dl (12.0-16.0); Mean Corpuscular Hemoglobin 29.4 pg (25.0-34.0); Mean Corpuscular Hgb Conc 32.7 g/dL (32.0-36.0); Mean Platelet Volume 9.9 fL (9.4-12.4); Platelet Count 467 K/uL (130-400); RDW Coefficient of Variation 12.9 % (11.5-14.5); RDW Standard Deviation 42.3 fL (36.4-46.3); White Blood Count 18.33 K/ul (4.8-10.8)
--- NOTE | 2022-07-11 22:19 | Surgery Progress Note ---
Date of Service July 11, 2022 Assessment & Plan (1) Acute cholecystitis: Plan s/p difficult lap artem -HCT to 10 -asymptomatic -hemodynamic stable -recheck H/H in AM Admission and Anticipated Discharge Date Admission Date: July 11, 2022 Results & Data ([facility]) Vital Signs (Past 12 Hours) Vital Signs Temp Pulse Pulse Resp BP Pulse Ox O2 Del Method 07/11/22 19:09 37 C 94 H 18 115/76 90 Room Air 07/11/22 11:30 36.9 C 82 170/94 H 94 Room Air 07/11/22 14:31 37.0 C 100 H 18 116/79 96 Room Air 07/11/22 13:31 36.5 C 97 H 18 120/78 94 Room Air 07/11/22 13:28 36.9 C 95 H 18 93/58 L 94 Room Air 07/11/22 12:30 36.9 C 93 H 18 137/77 93 Room Air 07/11/22 12:00 36.9 C 85 16 162/82 H 92 Room Air 07/11/22 11:39 36.9 C 82 170/94 H 94 Room Air 07/11/22 11:15 82 18 172/81 H 95 Room Air 07/11/22 11:05 81 18 177/84 H 96 Room Air 07/11/22 10:55 36.2 C L 89 20 172/89 H 95 Room Air 07/11/22 10:45 88 20 171/87 H 96 Room Air 07/11/22 10:35 86 20 175/86 H 99 Oxymask 07/11/22 10:28 36 C L 88 22 177/85 H 99 Oxymask O2 Flow Rate 07/11/22 19:09 07/11/22 11:30 07/11/22 14:31 07/11/22 13:31 07/11/22 13:28 07/11/22 12:30 07/11/22 12:00 07/11/22 11:39 07/11/22 11:15 07/11/22 11:05 07/11/22 10:55 07/11/22 10:45 07/11/22 10:35 7 07/11/22 10:28 12
[2022-07-11] MEDS: SPIRONOLACTONE 25 MG TAB PO SCH (23:12)
[2022-07-12] MEDS: MoRPHine SULFATE 4 MG/ML 1 ML CARP\\VIAL IV PRN ×5 (01:49→23:13)
[2022-07-12] MEDS: cefOXitin 2,000 MG in DEXTROSE 5% 50 ML IV SCH ×4 (03:19→20:29)
[2022-07-12] MEDS: oxyCODONE/ACETAMINOPHEN 5mg/325mg TAB PO PRN (03:23)
[2022-07-12 04:15] LABS: Hematocrit (blood only) 30.2 % (37.0-47.0); Hemoglobin 9.9 g/dl (12.0-16.0); Mean Corpuscular Hemoglobin 29.6 pg (25.0-34.0); Mean Corpuscular Hgb Conc 32.8 g/dL (32.0-36.0); Mean Corpuscular Volume 90.4 fL (80.0-100.0); Mean Platelet Volume 10.5 fL (9.4-12.4); Platelet Count 468 K/uL (130-400); RDW Standard Deviation 42.4 fL (36.4-46.3); Red Blood Count 3.34 M/uL (4.20-5.40); White Blood Count 18.44 K/ul (4.8-10.8)
[2022-07-12] MEDS: FAMOTIDINE 20 MG in SYRINGE 3 ML IV SCH ×2 (05:52→18:29)
[2022-07-12] MEDS: LACTATED RINGER'S 1,000 ML IV SCH ×2 (08:08→20:23)
[2022-07-12] MEDS: SPIRONOLACTONE 25 MG TAB PO SCH ×2 (08:10→20:29)
[2022-07-12] MEDS: TOPIRAMATE 25 MG TAB PO SCH ×2 (08:11→20:29)
--- NOTE | 2022-07-12 09:16 | Surgery Progress Note ---
Date of Service July 12, 2022 Assessment & Plan (1) Acute cholecystitis: Plan POD # 1 s/p lap artem - afebrile -HCT to 9.9 --> 9.5 today -hemodynamically stable - dev drain with bloody output Plan: Abdominal binder OOB to chair incentive spirometry Monitor vitals closely dev drain to bulb suction pain management as needed IV Fluids 100 cc/hr Continue IV Cefoxitin repeat am labs Dr. Marquez has seen patient and agrees with above. Admission and Anticipated Discharge Date Admission Date: July 11, 2022 Subjective having more pain today than yesterday, generalized 11/15 did not move yesterday, has not been out of bed yet today + nausea, no vomiting Feeling dizzy when trying to sit up no chest pain or shortness of breath urinating in bed huff Physical Exam Constitutional: WD/WN, vitals as above + obese, cooperative and + lethargic; no acute distress, not ill appearing and not combative Respiratory: no respiratory distress, no labored breathing and no cough Auscultation: + diminished lung sounds; no crackles, no rales and no rhonchi Cardiovascular: Rate/Rhythm: regular rate and regular rhythm Gastrointestinal (Abdomen): Inspection/Auscultation: abdomen normal to inspection, + abdominal surgical incision (with bloody drainage) and + abdominal surgical drain present (bloody); abdomen not distended and + abnormal bowel sounds Percussion/Palpation: + abdomen tender (generalized tenderness, more so at drain site and incisions) and abdomen soft; no guarding, abdomen not rigid and abdomen not firm Skin: no rashes, warm and dry + pallor; no jaundice Psychiatric: Orientation: alert and oriented x 3 Results & Data ([facility]) Vital Signs (Past 12 Hours) Vital Signs Temp Pulse Resp BP Pulse Ox O2 Del Method O2 Flow Rate 07/12/22 08:25 130/80 07/12/22 07:24 36.7 C 89 16 139/75 93 Nasal Cannula 2 07/12/22 05:43 37 C 84 16 139/72 94 Nasal Cannula 3 07/12/22 03:02 37.1 C 94 H 20 126/80 94 Nasal Cannula 2 07/12/22 02:21 37.1 C 84 16 129/83 92 Nasal Cannula 3 07/11/22 21:30 115/80 07/11/22 23:07 95 Nasal Cannula 2 07/11/22 22:59 36.9 C 91 H 18 110/72 89 L Room Air Laboratory Results 07/12/22 07/12/22 07/11/22 Range/Units 11:50 03:40 21:42 WBC 18.44 H 18.33 H (4.8-10.8) K/ul RBC 3.34 L 3.60 L (4.20-5.40) M/uL Hgb 9.5 L 9.9 L 10.6 L D (12.0-16.0) g/dl Hct 29.3 L 30.2 L 32.4 L (37.0-47.0) % MCV 90.4 90.0 (80.0-100.0) fL MCH 29.6 29.4 (25.0-34.0) pg MCHC 32.8 32.7 (32.0-36.0) g/dL RDW Std Deviation 42.4 42.3 (36.4-46.3) fL RDW Coeff of Sea 13.0 12.9 (11.5-14.5) % Plt Count 468 H 467 H (130-400) K/uL MPV 10.5 9.9 (9.4-12.4) fL
[2022-07-12 12:08] LABS: Hematocrit (blood only) 29.3 % (37.0-47.0); Hemoglobin 9.5 g/dl (12.0-16.0)
[2022-07-12] MEDS: ONDANSETRON INJ 2 MG/ML 2 ML VIAL IV PRN (13:25)
[2022-07-12 20:03] LABS: Hematocrit (blood only) 26.2 % (37.0-47.0); Hemoglobin 8.5 g/dl (12.0-16.0)
--- NOTE | 2022-07-12 23:19 | Surgery Progress Note ---
Date of Service July 12, 2022 Assessment & Plan (1) Acute cholecystitis: Plan POD # 1 s/p lap artem - afebrile -HCT to 9.9 --> 9.5 today -hemodynamically stable - dev drain with bloody output Plan: Abdominal binder OOB to chair incentive spirometry Monitor vitals closely dev drain to bulb suction pain management as needed IV Fluids 100 cc/hr Continue IV Cefoxitin repeat am labs Dr. Marquez has seen patient and agrees with above. 07/12/2022 11:[address] Marquez F/U S/P lap artem, POD 1 some drainage bloody and bili color on DEV, HCT 8.5 tonight, this morning was 9.5, pt's vital signs stable, D/W Dr. Jane who recommend give blood transfusion if HCT < 7, repeat labs, CBC, CMP, PT PTT, INR in morning, tape and screening 2 units blood, NPO now, continue treatment I told to pt, pt may need go to OR for washing out abdomen or exploratory laparotomy, if pt's condition is getting worse, pt understood, she agreed with the plan, now, will F/U, Admission and Anticipated Discharge Date Admission Date: July 11, 2022 Subjective having more pain today than yesterday, generalized 11/15 did not move yesterday, has not been out of bed yet today + nausea, no vomiting Feeling dizzy when trying to sit up no chest pain or shortness of breath urinating in bed huff 07/12/2022 11:[address] Marquez F/U S/P lap artem, POD 1, pt is stable, no significant abdominal pain, no nausea, no vomiting, DEV 550ml with biliary color and bloody color, pt's ital signs stable, BP 126/78, HR 92, RR 20, O2 sat 96% 2L/min Review of Systems Constitutional: + anorexia; no fever and no chills Eyes: no problem reported Ear, Nose, Mouth, Throat: no problem reported Respiratory: no cough and no dyspnea Cardiovascular: + chest pain Gastrointestinal: + abdominal pain and + nausea; no vomiting and no change in bowel habits Genitourinary: no dysuria Musculoskeletal: + back pain Integumentary: no problem reported Neurologic: no problem reported Psychiatric: no problem reported Endocrine: no problem reported Hematologic / Lymphatic: no easy bleeding and no easy bruising Physical Exam Constitutional: WD/WN, vitals as above Eyes: PERRL, conjunctivae normal, anicteric sclerae no distress Neck: trachea midline, no thyromegaly Respiratory: normal respiratory effort, lungs clear to auscultation Cardiovascular: RRR, no murmur, no edema Gastrointestinal (Abdomen): soft, mild tenderness at RUQ, no rebound pain, all incisions intact, no redness, BS +, Musculoskeletal: no cyanosis or clubbing, extremities motor strength 5/5 Neurologic: patellar DTR's 2+ bilat, sensation intact Psychiatric: A+Ox3, euthymic affect Results & Data ([facility]) Vital Signs (Past 12 Hours) Vital Signs Temp Pulse Resp BP Pulse Ox O2 Del Method O2 Flow Rate 07/12/22 23:00 37.2 C 92 H 16 128/71 96 Nasal Cannula 2 07/12/22 19:52 Nasal Cannula 2 07/12/22 19:32 37.0 C 92 H 16 123/78 95 Nasal Cannula 2 07/12/22 18:11 36.9 C 91 H 16 126/78 95 Nasal Cannula 2 07/12/22 14:55 37.0 C 90 16 126/78 94 Nasal Cannula 2 07/12/22 12:53 36.8 C 84 18 135/84 95 Nasal Cannula 2 07/12/22 11:50 37.0 C 92 H 16 146/85 H 95 Nasal Cannula 2 Laboratory Results Abnormal lab results 07/12/22 07/12/22 07/12/22 Range/Units 03:40 11:50 19:42 WBC 18.44 H (4.8-10.8) K/ul RBC 3.34 L (4.20-5.40) M/uL Hgb 9.9 L 9.5 L 8.5 L (12.0-16.0) g/dl Hct 30.2 L 29.3 L 26.2 L (37.0-47.0) % Plt Count 468 H (130-400) K/uL
[2022-07-13] MEDS: cefOXitin 2,000 MG in DEXTROSE 5% 50 ML IV SCH ×2 (03:12→09:36)
[2022-07-13] MEDS: FAMOTIDINE 20 MG in SYRINGE 3 ML IV SCH ×2 (05:10→18:24)
[2022-07-13 06:14] LABS: Basophils # (auto) 0.06 K/uL (0-0.2); Basophils % (auto) 0.3 %; Eosinophils # (auto) 0.01 K/uL (0-0.50); Eosinophils % (auto) 0.1 %; Hematocrit (blood only) 24.1 % (37.0-47.0); Hemoglobin 7.9 g/dl (12.0-16.0); Immature Granulocytes # (auto) 0.18 K/uL (0.01-0.20); Lymphocytes # (auto) 1.92 K/uL (1.2-3.4); Lymphocytes % (auto) 10.7 %; Mean Corpuscular Hemoglobin 29.8 pg (25.0-34.0); Mean Corpuscular Hgb Conc 32.8 g/dL (32.0-36.0); Mean Corpuscular Volume 90.9 fL (80.0-100.0); Mean Platelet Volume 10.2 fL (9.4-12.4); Monocytes # (auto) 1.95 K/uL (0.11-0.59); Monocytes % (auto) 10.9 %; Neutrophils # (auto) 13.83 K/uL (1.40-6.50); Platelet Count 340 K/uL (130-400); RDW Coefficient of Variation 13.2 % (11.5-14.5); RDW Standard Deviation 42.6 fL (36.4-46.3); Red Blood Count 2.65 M/uL (4.20-5.40); White Blood Count 17.95 K/ul (4.8-10.8)
[2022-07-13 06:35] LABS: Polychromasia 1+
[2022-07-13 06:43] LABS: Partial Thromboplastin Ratio 0.9; Partial Thromboplastin Time 23.9 Seconds (21.0-31.0); Prothrombin Time 10.5 Seconds (9.0-12.0)
[2022-07-13 06:46] LABS: Albumin Globulin Ratio 1.3 (0.9-2); Albumin Level 3.4 gm/dl (3.4-5.0); BUN Creatinine Ratio 38.2 (10-20); Bilirubin,Total 0.5 mg/dl (0.2-1.0); Calcium 8.3 mg/dl (8.5-10.1); Creatinine Clr Calc Pharmacy 85.1 ml/min; Est GFR (African American) 81.6 ml/min; Est GFR (Non-African American) 70.4 ml/min; Globulin 2.7 gm/dl (2.5-4.0); Potassium 5.2 mmol/L (3.5-5.1); Total Protein 6.1 gm/dl (6.0-8.3)
[2022-07-13] MEDS: LACTATED RINGER'S 1,000 ML IV SCH ×2 (07:45→23:26)
[2022-07-13] MEDS ORDERED: PIPERACILLIN/TAZOBACTAM 3.375 GM (over 30 mins) IV ONE (09:30)
--- NOTE | 2022-07-13 09:31 | Surgery Progress Note ---
Date of Service July 13, 2022 Assessment & Plan (1) Acute cholecystitis: Plan POD # 2 s/p lap ratem - afebrile -HCT to 9.9 --> 9.5 --> 8.5 --> 7.9 this am -hemodynamically stable - dev drain with bloody output, slight bile tinged Plan: Continue pain management as needed will change to IV Zosyn given persistent leukocytosis urine culture recheck h&H at noon, transfuse if Hgb <7 Abdominal binder OOB to chair incentive spirometry Monitor vitals closely dev drain to bulb suction IV Fluids 100 cc/hr Dr. Koenig has seen patient and agrees with above Addendum 07/13/2022 at 3:00 repeat hgb 7.2 this afternoon, plan to transfuse 2 units of PRBC and repeat Hemoglobin following Discussed transfusion with patient and risks of transfusion and informed consent obtained continue clears for now Repeat am labs Discussed with Dr. koenig who agrees with above. Admission and Anticipated Discharge Date Admission Date: July 11, 2022 Subjective abdominal pain is better today, not as severe, more of a soreness throughout lower abdomen no chest pain or shortness of breath still getting dizzy with position changes urinating without difficulty thirsty Per nurse, got up to bedside commode yesterday and patient very pale. Also had alot of bleeding from incision sites when getting up Urine is very odorous Physical Exam Constitutional: + obese, cooperative and + lethargic; no acute distress and not ill appearing Neck: normal visual inspection and trachea midline Respiratory: normal respiratory effort, lungs clear to auscultation no labored breathing, no retractions and no cough Gastrointestinal (Abdomen): Inspection/Auscultation: abdomen normal to inspection, + abdominal surgical incision (covered with dressings) and + abdominal surgical drain present (bloody with some bile tinged); abdomen not distended and + abnormal bowel sounds Percussion/Palpation: + abdomen tender (generlized tenderness) and abdomen soft (softer compared to yesterday); no guarding and abdomen not rigid Skin: no rashes, warm and dry + pallor; no jaundice Psychiatric: Orientation: alert and oriented x 3 Results & Data ([facility]) Vital Signs (Past 12 Hours) Vital Signs Temp Pulse Resp BP Pulse Ox O2 Del Method O2 Flow Rate 07/13/22 09:02 96 Nasal Cannula 2 07/13/22 07:32 Room Air 2 07/13/22 07:53 37.5 C 92 H 16 144/80 H 93 Nasal Cannula 2 07/13/22 05:08 37.0 C 91 H 16 129/77 95 Nasal Cannula 2 07/12/22 23:00 37.2 C 92 H 16 128/71 96 Nasal Cannula 2 Laboratory Results 07/13/22 07/13/22 07/13/22 Range/Units 05:38 05:38 05:38 WBC 17.95 H (4.8-10.8) K/ul RBC 2.65 L (4.20-5.40) M/uL Hgb 7.9 L (12.0-16.0) g/dl Hct 24.1 L (37.0-47.0) % MCV 90.9 (80.0-100.0) fL MCH 29.8 (25.0-34.0) pg MCHC 32.8 (32.0-36.0) g/dL RDW Std Deviation 42.6 (36.4-46.3) fL RDW Coeff of Sea 13.2 (11.5-14.5) % Plt Count 340 (130-400) K/uL MPV 10.2 (9.4-12.4) fL Immature Gran % (Auto) 1.0 % Neut % (Auto) 77.0 % Lymph % (Auto) 10.7 % [place] % (Auto) 10.9 % Eos % (Auto) 0.1 % Baso % (Auto) 0.3 % Neut # (Auto) 13.83 H (1.40-6.50) K/uL Lymph # (Auto) 1.92 (1.2-3.4) K/uL [place] # (Auto) 1.95 H (0.11-0.59) K/uL Eos # (Auto) 0.01 (0-0.50) K/uL Baso # (Auto) 0.06 (0-0.2) K/uL Immature Gran # (Auto) 0.18 (0.01-0.20) K/uL Polychromasia 1+ PT 10.5 (9.0-12.0) Seconds INR 1.0 (0.9-1.1) APTT 23.9 (21.0-31.0) Seconds PTT Ratio 0.9 Sodium 135 L (136-145) mmol/L Potassium 5.2 H (3.5-5.1) mmol/L Chloride 106 (98-107) mmol/L Carbon Dioxide 28 (21-32) mmol/L Anion Gap 1 L (3-11) BUN 34 H (6-23) mg/dl Creatinine 0.89 (0.6-1.2) mg/dl Est Cr Clr Drug Dosing 85.1 ml/min Est GFR ( Amer) 81.6 ml/min Est GFR (Non-Af Amer) 70.4 ml/min BUN/Creatinine Ratio 38.2 H (10-20) Glucose 125 H (70-99(Fasting)) mg/dl Calcium 8.3 L (8.5-10.1) mg/dl Total Bilirubin 0.5 (0.2-1.0) mg/dl AST 28 (13-39) U/L ALT 49 (7-52) U/L Alkaline Phosphatase 59 (34-104) U/L Total Protein 6.1 (6.0-8.3) gm/dl Albumin 3.4 (3.4-5.0) gm/dl Globulin 2.7 (2.5-4.0) gm/dl Albumin/Globulin Ratio 1.3 (0.9-2) Blood Type Antibody Screen 07/12/22 07/12/22 07/12/22 Range/Units 23:38 19:42 11:50 WBC (4.8-10.8) K/ul RBC (4.20-5.40) M/uL Hgb 8.5 L 9.5 L (12.0-16.0) g/dl Hct 26.2 L 29.3 L (37.0-47.0) % MCV (80.0-100.0) fL MCH (25.0-34.0) pg MCHC (32.0-36.0) g/dL RDW Std Deviation (36.4-46.3) fL RDW Coeff of Sea (11.5-14.5) % Plt Count (130-400) K/uL MPV (9.4-12.4) fL Immature Gran % (Auto) % Neut % (Auto) % Lymph % (Auto) % [place] % (Auto) % Eos % (Auto) % Baso % (Auto) % Neut # (Auto) (1.40-6.50) K/uL Lymph # (Auto) (1.2-3.4) K/uL [place] # (Auto) (0.11-0.59) K/uL Eos # (Auto) (0-0.50) K/uL Baso # (Auto) (0-0.2) K/uL Immature Gran # (Auto) (0.01-0.20) K/uL Polychromasia PT (9.0-12.0) Seconds INR (0.9-1.1) APTT (21.0-31.0) Seconds PTT Ratio Sodium (136-145) mmol/L Potassium (3.5-5.1) mmol/L Chloride (98-107) mmol/L Carbon Dioxide (21-32) mmol/L Anion Gap (3-11) BUN (6-23) mg/dl Creatinine (0.6-1.2) mg/dl Est Cr Clr Drug Dosing ml/min Est GFR ( Amer) ml/min Est GFR (Non-Af Amer) ml/min BUN/Creatinine Ratio (10-20) Glucose (70-99(Fasting)) mg/dl Calcium (8.5-10.1) mg/dl Total Bilirubin (0.2-1.0) mg/dl AST (13-39) U/L ALT (7-52) U/L Alkaline Phosphatase (34-104) U/L Total Protein (6.0-8.3) gm/dl Albumin (3.4-5.0) gm/dl Globulin (2.5-4.0) gm/dl Albumin/Globulin Ratio (0.9-2) Blood Type O Positive Antibody Screen NEGATIVE
[2022-07-13] MEDS: SPIRONOLACTONE 25 MG TAB PO SCH ×2 (09:35→20:04)
[2022-07-13] MEDS: TOPIRAMATE 25 MG TAB PO SCH ×2 (09:35→20:04)
[2022-07-13 13:00] LABS: Hematocrit (blood only) 22.4 % (37.0-47.0); Hemoglobin 7.2 g/dl (12.0-16.0)
[2022-07-13] MEDS: oxyCODONE/ACETAMINOPHEN 5mg/325mg TAB PO PRN ×2 (13:53→23:22)
[2022-07-13] MEDS ORDERED: SODIUM CHLORIDE 0.9% 250 ML IV PRN ×2 (14:56→15:15)
[2022-07-13] MEDS: PIPERACILLIN/TAZOBACTAM 3.375 GM in DEXTROSE 5% 100 ML IV SCH ×2 (15:37→23:25)
[2022-07-13 20:13] LABS: Hematocrit (blood only) 24.8 % (37.0-47.0)
[2022-07-14] MEDS: PIPERACILLIN/TAZOBACTAM 3.375 GM in DEXTROSE 5% 100 ML IV SCH ×2 (06:02→15:16)
[2022-07-14] MEDS: FAMOTIDINE 20 MG in SYRINGE 3 ML IV SCH ×2 (06:03→17:52)
[2022-07-14] MEDS: TOPIRAMATE 25 MG TAB PO SCH ×2 (07:42→20:49)
[2022-07-14] MEDS: SPIRONOLACTONE 25 MG TAB PO SCH ×2 (07:42→20:49)
[2022-07-14 08:21] LABS: Basophils # (auto) 0.07 K/uL (0-0.2); Basophils % (auto) 0.5 %; Eosinophils # (auto) 0.11 K/uL (0-0.50); Eosinophils % (auto) 0.8 %; Hematocrit (blood only) 27.2 % (37.0-47.0); Hemoglobin 8.9 g/dl (12.0-16.0); Immature Granulocytes # (auto) 0.13 K/uL (0.01-0.20); Lymphocytes # (auto) 1.64 K/uL (1.2-3.4); Mean Corpuscular Hemoglobin 29.6 pg (25.0-34.0); Mean Corpuscular Hgb Conc 32.7 g/dL (32.0-36.0); Mean Corpuscular Volume 90.4 fL (80.0-100.0); Monocytes # (auto) 1.46 K/uL (0.11-0.59); Monocytes % (auto) 10.7 %; Neutrophils # (auto) 10.25 K/uL (1.40-6.50); Nucleated RBC # (auto) 0.02 K/uL (0-0.12); Nucleated RBC % (auto) 0.1 %; Platelet Count 248 K/uL (130-400); RDW Coefficient of Variation 13.8 % (11.5-14.5); RDW Standard Deviation 45.1 fL (36.4-46.3); Red Blood Count 3.01 M/uL (4.20-5.40); White Blood Count 13.66 K/ul (4.8-10.8)
[2022-07-14 08:44] LABS: Albumin Globulin Ratio 1.2 (0.9-2); Albumin Level 3.1 gm/dl (3.4-5.0); BUN Creatinine Ratio 32.1 (10-20); Bilirubin,Total 0.7 mg/dl (0.2-1.0); Calcium 8.1 mg/dl (8.5-10.1); Creatinine Clr Calc Pharmacy 135.2 ml/min; Est GFR (African American) 117.5 ml/min; Est GFR (Non-African American) 101.3 ml/min; Globulin 2.5 gm/dl (2.5-4.0); Potassium 4.4 mmol/L (3.5-5.1); Total Protein 5.6 gm/dl (6.0-8.3)
--- NOTE | 2022-07-14 09:30 | Surgery Progress Note ---
Date of Service July 14, 2022 Assessment & Plan (1) Acute cholecystitis: (2) Acute blood loss anemia: Plan POD # 3 s/p lap artem - tmax of 37.7, hemodynamically stable - S/p 2 units of PRBCs hemoglobin 7.2 --> 8.0 -- > 8.9 (this am) - dev drain with bloody output (dark blood), slight bile tinged - continued abdominal pain with not much improvement - Leukocytosis improved to 13K (18K yesterday) Plan: Continue pain management as needed Given persistent abdominal pain and mild bile tinged dev output will get MRCP to evaluate for any postoperative bile leak. continue IV Zosyn Abdominal binder OOB to chair incentive spirometry Monitor vitals closely dev drain to bulb suction IV Fluids 50 cc/hr repeat am labs highly encouraged patient to wear SCDs for DVT prophyalxis and need to try to get her up and moving today PT/OT consults await MRCP results Dr. Marquez has seen patient and agrees with above Admission and Anticipated Discharge Date Admission Date: July 11, 2022 Subjective "not feeling great" still getting dizzy but not as frequent sore from lying in bed abdominal pain generalized, not worse than yesterday but not significantly improved not drinking much no appetite Physical Exam Constitutional: WD/WN, vitals as above + morbidly obese, cooperative, co mfortable and + lethargic; no acute distress and not ill appearing Neck: normal visual inspection and trachea midline Respiratory: normal respiratory effort; no respiratory distress Gastrointestinal (Abdomen): Inspection/Auscultation: abdomen normal to inspection, normal bowel sounds, + abdominal surgical incision (covered with dry intact dressings) and + abdominal surgical drain present (bloody and some bile tinged, dark blood, scant amount of bright red blood); abdomen not distended Percussion/Palpation: + abdomen tender (generalized tenderness more in RUQ and RLQ and at incision site) and abdomen soft; no guarding, abdomen not rigid and abdomen not firm Skin: no rashes, warm and dry + pallor; no jaundice Psychiatric: Orientation: alert and oriented x 3 Results & Data ([facility]) Vital Signs (Past 12 Hours) Vital Signs Temp Pulse Pulse Resp BP BP Pulse Ox 07/14/22 07:33 07/14/22 07:19 37.7 C H 84 18 117/74 94 07/14/22 06:05 85 16 117/73 94 07/14/22 04:35 85 16 114/74 95 07/14/22 01:56 85 16 112/72 95 07/14/22 01:06 37.1 C 88 16 103/65 94 07/13/22 23:43 37.3 C 91 H 16 119/72 95 07/13/22 23:43 37.3 C 91 H 16 119/72 95 07/13/22 22:30 37.6 C H 92 H 16 129/76 96 O2 Del Method O2 Flow Rate 07/14/22 07:33 Nasal Cannula 2 07/14/22 07:19 Nasal Cannula 2 07/14/22 06:05 Nasal Cannula 2 07/14/22 04:35 Nasal Cannula 2 07/14/22 01:56 Nasal Cannula 2 07/14/22 01:06 Nasal Cannula 2 07/13/22 23:43 2 07/13/22 23:43 2 07/13/22 22:30 2.0 Laboratory Results 07/14/22 07/14/22 07/13/22 Range/Units 07:58 07:58 19:55 WBC 13.66 H (4.8-10.8) K/ul RBC 3.01 L (4.20-5.40) M/uL Hgb 8.9 L 8.0 L (12.0-16.0) g/dl Hct 27.2 L 24.8 L (37.0-47.0) % MCV 90.4 (80.0-100.0) fL MCH 29.6 (25.0-34.0) pg MCHC 32.7 (32.0-36.0) g/dL RDW Std Deviation 45.1 (36.4-46.3) fL RDW Coeff of Sea 13.8 (11.5-14.5) % Plt Count 248 (130-400) K/uL MPV 10.0 (9.4-12.4) fL Immature Gran % (Auto) 1.0 % Neut % (Auto) 75.0 % Lymph % (Auto) 12.0 % [place] % (Auto) 10.7 % Eos % (Auto) 0.8 % Baso % (Auto) 0.5 % Neut # (Auto) 10.25 H (1.40-6.50) K/uL Lymph # (Auto) 1.64 (1.2-3.4) K/uL [place] # (Auto) 1.46 H (0.11-0.59) K/uL Eos # (Auto) 0.11 (0-0.50) K/uL Baso # (Auto) 0.07 (0-0.2) K/uL Immature Gran # (Auto) 0.13 (0.01-0.20) K/uL Absolute Nucleated RBC 0.02 (0-0.12) K/uL Nucleated RBC % (auto) 0.1 % Sodium 136 (136-145) mmol/L Potassium 4.4 (3.5-5.1) mmol/L Chloride 103 (98-107) mmol/L Carbon Dioxide 32 (21-32) mmol/L Anion Gap 1 L (3-11) BUN 18 (6-23) mg/dl Creatinine 0.56 L D (0.6-1.2) mg/dl Est Cr Clr Drug Dosing 135.2 ml/min Est GFR ( Amer) 117.5 ml/min Est GFR (Non-Af Amer) 101.3 ml/min BUN/Creatinine Ratio 32.1 H (10-20) Glucose 112 H (70-99(Fasting)) mg/dl Calcium 8.1 L (8.5-10.1) mg/dl Total Bilirubin 0.7 (0.2-1.0) mg/dl AST 20 (13-39) U/L ALT 36 (7-52) U/L Alkaline Phosphatase 54 (34-104) U/L Total Protein 5.6 L (6.0-8.3) gm/dl Albumin 3.1 L (3.4-5.0) gm/dl Globulin 2.5 (2.5-4.0) gm/dl Albumin/Globulin Ratio 1.2 (0.9-2) Blood Type Blood Type Recheck Antibody Screen Crossmatch 07/13/22 07/13/22 07/12/22 Range/Units 11:54 11:54 23:38 WBC (4.8-10.8) K/ul RBC (4.20-5.40) M/uL Hgb 7.2 L (12.0-16.0) g/dl Hct 22.4 L (37.0-47.0) % MCV (80.0-100.0) fL MCH (25.0-34.0) pg MCHC (32.0-36.0) g/dL RDW Std Deviation (36.4-46.3) fL RDW Coeff of Sea (11.5-14.5) % Plt Count (130-400) K/uL MPV (9.4-12.4) fL Immature Gran % (Auto) % Neut % (Auto) % Lymph % (Auto) % [place] % (Auto) % Eos % (Auto) % Baso % (Auto) % Neut # (Auto) (1.40-6.50) K/uL Lymph # (Auto) (1.2-3.4) K/uL [place] # (Auto) (0.11-0.59) K/uL Eos # (Auto) (0-0.50) K/uL Baso # (Auto) (0-0.2) K/uL Immature Gran # (Auto) (0.01-0.20) K/uL Absolute Nucleated RBC (0-0.12) K/uL Nucleated RBC % (auto) % Sodium (136-145) mmol/L Potassium (3.5-5.1) mmol/L Chloride (98-107) mmol/L Carbon Dioxide (21-32) mmol/L Anion Gap (3-11) BUN (6-23) mg/dl Creatinine (0.6-1.2) mg/dl Est Cr Clr Drug Dosing ml/min Est GFR ( Amer) ml/min Est GFR (Non-Af Amer) ml/min BUN/Creatinine Ratio (10-20) Glucose (70-99(Fasting)) mg/dl Calcium (8.5-10.1) mg/dl Total Bilirubin (0.2-1.0) mg/dl AST (13-39) U/L ALT (7-52) U/L Alkaline Phosphatase (34-104) U/L Total Protein (6.0-8.3) gm/dl Albumin (3.4-5.0) gm/dl Globulin (2.5-4.0) gm/dl Albumin/Globulin Ratio (0.9-2) Blood Type O Positive Blood Type Recheck O Positive Antibody Screen NEGATIVE Crossmatch See Detail
[2022-07-14] MEDS: LACTATED RINGER'S 1,000 ML IV SCH ×2 (10:31)
[2022-07-14] MEDS ORDERED: LORazepam 0.5 MG TAB PO PRN (12:41)
[2022-07-14] MEDS: oxyCODONE/ACETAMINOPHEN 5mg/325mg TAB PO PRN (17:52)
--- NOTE | 2022-07-14 18:58 | Magnetic Resonance Report ---
MR MRCP HISTORY: 62 years-old Female POD#3 lap artem postop bleed, cont pain ?bile leak acute nausea with ge neralized abdominal pain status post cholecystectomy. COMPARISON: CT abdomen and pelvis 07/11/2022 TECHNIQUE: MRCP was obtained without the use of IV contrast utilizing institutional protocol. FINDINGS: Motion degraded exam. The study is also limited secondary to patient body habitus. Cardiomegaly. Smal l pleural effusions with dependent bibasilar consolidation favoring atelectasis. Degenerative changes are noted within the thoracolumbar spine with sigmoidal thoracolumbar scoliosis. Hepatic steatosis w ith hepatosplenomegaly. Mild to moderate pancreatic atrophy. Unremarkable adrenal glands and kidneys. No bowel obstruction or bowel wall thickening. Lateral abdominal wall subcutaneous edema is likely p ostoperative. Surgical drainage catheter is partially visualized. Postoperative changes of interval cholecystectomy. Air and fluid is noted within the tigre hepatis wi th small amount of fluid tracking along the inferior right hepatic lobe/pericolic gutter. No drainabl e fluid collection identified. Common bile duct measures 5 mm. Nondilated pancreatic duct. No choledo cholithiasis or intrahepatic biliary ductal dilation. IMPRESSION: 1. Limited exam secondary to motion and patient body habitus. 2. Interval cholecystectomy with trace fluid and air within the tigre hepatis and small amount of flu id tracking along the right hepatic lobe and pericolic gutter, likely expected postoperative changes. 3. No postoperative drainable fluid collection. 4. Small pleural effusions. 5. No choledocholithiasis or biliary ductal dilation identified. ACT 112: Negative or not required by law. The above report was generated using voice recognition software. It may contain grammatical, syntax o r spelling errors. Electronically signed by: Michael Barrios M.D. 07/14/2022 6:55 PM
[2022-07-15] MEDS: PIPERACILLIN/TAZOBACTAM 3.375 GM in DEXTROSE 5% 100 ML IV SCH ×4 (00:08→22:21)
[2022-07-15] MEDS: FAMOTIDINE 20 MG in SYRINGE 3 ML IV SCH ×2 (06:26→18:32)
[2022-07-15] MEDS: LACTATED RINGER'S 1,000 ML IV SCH (08:02)
[2022-07-15 09:36] LABS: Basophils # (auto) 0.05 K/uL (0-0.2); Basophils % (auto) 0.4 %; Eosinophils # (auto) 0.23 K/uL (0-0.50); Hematocrit (blood only) 26.3 % (37.0-47.0); Hemoglobin 8.7 g/dl (12.0-16.0); Immature Granulocytes # (auto) 0.11 K/uL (0.01-0.20); Lymphocytes # (auto) 1.46 K/uL (1.2-3.4); Lymphocytes % (auto) 12.6 %; Mean Corpuscular Hemoglobin 29.3 pg (25.0-34.0); Mean Corpuscular Hgb Conc 33.1 g/dL (32.0-36.0); Mean Corpuscular Volume 88.6 fL (80.0-100.0); Mean Platelet Volume 10.1 fL (9.4-12.4); Monocytes % (auto) 6.1 %; Neutrophils # (auto) 9.01 K/uL (1.40-6.50); Neutrophils % (auto) 77.9 %; Nucleated RBC # (auto) 0.02 K/uL (0-0.12); Nucleated RBC % (auto) 0.2 %; Platelet Count 282 K/uL (130-400); RDW Coefficient of Variation 13.9 % (11.5-14.5); RDW Standard Deviation 44.2 fL (36.4-46.3); Red Blood Count 2.97 M/uL (4.20-5.40); White Blood Count 11.56 K/ul (4.8-10.8)
[2022-07-15 10:02] LABS: Albumin Globulin Ratio 1.1 (0.9-2); Albumin Level 3.1 gm/dl (3.4-5.0); BUN Creatinine Ratio 29.4 (10-20); Bilirubin,Total 1.3 mg/dl (0.2-1.0); Creatinine Clr Calc Pharmacy 148.5 ml/min; Est GFR (African American) 121.1 ml/min; Est GFR (Non-African American) 104.5 ml/min; Globulin 2.7 gm/dl (2.5-4.0); Potassium 3.8 mmol/L (3.5-5.1); Total Protein 5.8 gm/dl (6.0-8.3)
[2022-07-15] MEDS: TOPIRAMATE 25 MG TAB PO SCH ×2 (10:33→20:08)
[2022-07-15] MEDS: SPIRONOLACTONE 25 MG TAB PO SCH ×2 (10:33→20:08)
[2022-07-15] MEDS: DOCUSATE SODIUM 100 MG CAP PO SCH ×2 (10:33→20:08)
--- NOTE | 2022-07-15 11:49 | Surgery Progress Note ---
Date of Service July 15, 2022 Assessment & Plan (1) Acute cholecystitis: (2) Acute blood loss anemia: Plan POD # 4 s/p lap artem - afebrile, - S/p 2 units of PRBCs on 07/13/22 Hgb this am 8.7 (8.9 yesterday am) , stable, hemodynamically stable - dev drain with bloody output (dark blood), less bile tinged today - abdominal pain improving - Leukocytosis improved to 11.5K (13k yesterday, 18 k day prior) - Mrcp with postoperative fluid along the right liver and paracolic gutter, no drainable fluid collection, no choledocholithiasis - t. bili and lfts slightly elevated today Plan: Continue pain management as needed advance diet as tolerated continue IV Zosyn OOB to chair and ambulate incentive spirometry dev drain to bulb suction discontinue IV fluids repeat am labs highly encouraged patient to wear SCDs for DVT prophyalxis and need to try to get her up and moving today PT/OT consults case management consult Dr. Marquez has seen patient and agrees with above Admission and Anticipated Discharge Date Admission Date: July 14, 2022 Subjective feeling okay felt like able to drink more this morning passing gas able to get up to commode little easier and without as much dizziness no n,v Physical Exam Constitutional: WD/WN, vitals as above + morbidly obese, cooperative, comfortable and + lethargic; no acute distress and not ill appearing Neck: normal visual inspection and trachea midline Respiratory: normal respiratory effort; no respiratory distress, no labored breathing and no retractions Gastrointestinal (Abdomen): Inspection/Auscultation: abdomen normal to inspection, + abdominal surgical incision (covered with dry dressings) and + abdominal surgical drain present (bloody, (dark blood)); abdomen not distended and + abnormal bowel sounds Percussion/Palpation: + abdomen tender (RUQ and RLQ) and abdomen soft; no guarding and abdomen not rigid Skin: no rashes, warm and dry no jaundice Psychiatric: Orientation: alert and oriented x 3 Results & Data ([facility]) Vital Signs (Past 12 Hours) Vital Signs Temp Pulse Resp BP Pulse Ox O2 Del Method O2 Flow Rate 07/15/22 08:42 Nasal Cannula 2 07/15/22 07:51 37.1 C 71 16 142/71 H 96 Nasal Cannula 2 Laboratory Results 07/15/22 07/15/22 Range/Units 08:59 08:59 WBC 11.56 H (4.8-10.8) K/ul RBC 2.97 L (4.20-5.40) M/uL Hgb 8.7 L (12.0-16.0) g/dl Hct 26.3 L (37.0-47.0) % MCV 88.6 (80.0-100.0) fL MCH 29.3 (25.0-34.0) pg MCHC 33.1 (32.0-36.0) g/dL RDW Std Deviation 44.2 (36.4-46.3) fL RDW Coeff of Sea 13.9 (11.5-14.5) % Plt Count 282 (130-400) K/uL MPV 10.1 (9.4-12.4) fL Immature Gran % (Auto) 1.0 % Neut % (Auto) 77.9 % Lymph % (Auto) 12.6 % [place] % (Auto) 6.1 % Eos % (Auto) 2.0 % Baso % (Auto) 0.4 % Neut # (Auto) 9.01 H (1.40-6.50) K/uL Lymph # (Auto) 1.46 (1.2-3.4) K/uL [place] # (Auto) 0.70 H (0.11-0.59) K/uL Eos # (Auto) 0.23 (0-0.50) K/uL Baso # (Auto) 0.05 (0-0.2) K/uL Immature Gran # (Auto) 0.11 (0.01-0.20) K/uL Absolute Nucleated RBC 0.02 (0-0.12) K/uL Nucleated RBC % (auto) 0.2 % Sodium 134 L (136-145) mmol/L Potassium 3.8 (3.5-5.1) mmol/L Chloride 100 (98-107) mmol/L Carbon Dioxide 30 (21-32) mmol/L Anion Gap 4 (3-11) BUN 15 (6-23) mg/dl Creatinine 0.51 L (0.6-1.2) mg/dl Est Cr Clr Drug Dosing 148.5 ml/min Est GFR ( Amer) 121.1 ml/min Est GFR (Non-Af Amer) 104.5 ml/min BUN/Creatinine Ratio 29.4 H (10-20) Glucose 156 H (70-99(Fasting)) mg/dl Calcium 8.0 L (8.5-10.1) mg/dl Total Bilirubin 1.3 H D (0.2-1.0) mg/dl AST 45 H (13-39) U/L ALT 56 H (7-52) U/L Alkaline Phosphatase 88 (34-104) U/L Total Protein 5.8 L (6.0-8.3) gm/dl Albumin 3.1 L (3.4-5.0) gm/dl Globulin 2.7 (2.5-4.0) gm/dl Albumin/Globulin Ratio 1.1 (0.9-2)
[2022-07-15] MEDS: oxyCODONE/ACETAMINOPHEN 5mg/325mg TAB PO PRN (22:21)
[2022-07-16] MEDS: FAMOTIDINE 20 MG in SYRINGE 3 ML IV SCH ×2 (05:13→18:34)
[2022-07-16] MEDS: PIPERACILLIN/TAZOBACTAM 3.375 GM in DEXTROSE 5% 100 ML IV SCH ×3 (06:01→22:06)
[2022-07-16 08:24] LABS: Basophils # (auto) 0.09 K/uL (0-0.2); Basophils % (auto) 0.8 %; Eosinophils % (auto) 3.8 %; Hematocrit (blood only) 29.2 % (37.0-47.0); Hemoglobin 9.5 g/dl (12.0-16.0); Immature Granulocytes # (auto) 0.16 K/uL (0.01-0.20); Immature Granulocytes % (auto) 1.5 %; Lymphocytes # (auto) 1.54 K/uL (1.2-3.4); Lymphocytes % (auto) 14.5 %; Mean Corpuscular Hemoglobin 29.1 pg (25.0-34.0); Mean Corpuscular Hgb Conc 32.5 g/dL (32.0-36.0); Mean Corpuscular Volume 89.3 fL (80.0-100.0); Mean Platelet Volume 9.8 fL (9.4-12.4); Monocytes # (auto) 1.02 K/uL (0.11-0.59); Monocytes % (auto) 9.6 %; Neutrophils # (auto) 7.38 K/uL (1.40-6.50); Neutrophils % (auto) 69.8 %; Nucleated RBC # (auto) 0.02 K/uL (0-0.12); Nucleated RBC % (auto) 0.2 %; Platelet Count 336 K/uL (130-400); RDW Standard Deviation 44.1 fL (36.4-46.3); Red Blood Count 3.27 M/uL (4.20-5.40); White Blood Count 10.59 K/ul (4.8-10.8)
[2022-07-16 08:45] LABS: Albumin Level 3.2 gm/dl (3.4-5.0); Bilirubin,Total 1.8 mg/dl (0.2-1.0); Calcium 8.1 mg/dl (8.5-10.1); Potassium 3.7 mmol/L (3.5-5.1)
[2022-07-16 08:51] LABS: Albumin Globulin Ratio 1.1 (0.9-2); Creatinine Clr Calc Pharmacy 124.1 ml/min; Est GFR (African American) 114.2 ml/min; Est GFR (Non-African American) 98.5 ml/min; Globulin 2.8 gm/dl (2.5-4.0)
--- NOTE | 2022-07-16 09:09 | Surgery Progress Note ---
Date of Service July 16, 2022 Assessment & Plan (1) Acute cholecystitis: (2) Acute blood loss anemia: (3) Total bilirubin, elevated: Plan POD # 5 s/p lap artem - afebrile, - S/p 2 units of PRBCs on 07/13/22, hemodynamically stable, hgb 9.5 today (8.7 yesterday) - dev drain with bloody output (dark blood), less bile tinged today - Leukocytosis resolved (13k yesterday, 18 k day prior) - Mrcp with postoperative fluid along the right liver and paracolic gutter, no drainable fluid collection, no choledocholithiasis - t. bili and lfts continue to elevated, ? bile leak Plan: Continue pain management as needed continue IV Zosyn OOB to chair and ambulate incentive spirometry dev drain to bulb suction IV fluids while NPO GI consult for ERCP and biliary stent , likely postop bile leak highly encouraged patient to wear SCDs for DVT prophyalxis and need to try to get her up and moving today PT/OT consults case management consult repeat am labs tomorrow will go home with dev drain possibly home over weekend if labs improve following ERCP today, hgb stable, tolerating diet, and O2 sats stable on room air. Will send message to case fitter about possible home health nursing per pat and request. Dr. Marquez has seen patient and agrees with above. Admission and Anticipated Discharge Date Admission Date: July 14, 2022 Subjective feeling about same , pain about 4/10, not worse than yesterday but not better tolerated some beef tips and noodles last night for dinner no n,v Physical Exam Constitutional: WD/WN, vitals as above + morbidly obese, + frail appearing, cooperative and comfortable; no acute distress and not ill appearing Neck: normal visual inspection and trachea midline Respiratory: normal respiratory effort; no respiratory distress, no labored breathing and no retractions still on oxygen via nasal cannula Gastrointestinal (Abdomen): Inspection/Auscultation: abdomen normal to inspection and + abdominal surgical drain present (dark bloody to dark bilious today); abdomen not distended Percussion/Palpation: + abdomen tender (RUQ and RLQ and at drain site) and abdomen soft; no guarding and abdomen not rigid Skin: no rashes, warm and dry no jaundice Psychiatric: Orientation: alert and oriented x 3 Results & Data ([facility] [place]) Vital Signs (Past 12 Hours) Vital Signs Temp Pulse Resp BP Pulse Ox O2 Del Method O2 Flow Rate 07/16/22 07:19 36.8 C 88 14 148/87 H 94 Nasal Cannula 1 07/15/22 22:00 36.9 C 76 16 151/84 H 95 Nasal Cannula 1 07/15/22 21:15 Nasal Cannula 1 Diagnostic Findings 07/16/22 07/16/22 07/15/22 Range/Units 07:57 07:57 08:59 WBC 10.59 (4.8-10.8) K/ul RBC 3.27 L (4.20-5.40) M/uL Hgb 9.5 L (12.0-16.0) g/dl Hct 29.2 L (37.0-47.0) % MCV 89.3 (80.0-100.0) fL MCH 29.1 (25.0-34.0) pg MCHC 32.5 (32.0-36.0) g/dL RDW Std Deviation 44.1 (36.4-46.3) fL RDW Coeff of Sea 14.0 (11.5-14.5) % Plt Count 336 (130-400) K/uL MPV 9.8 (9.4-12.4) fL Immature Gran % (Auto) 1.5 % Neut % (Auto) 69.8 % Lymph % (Auto) 14.5 % Adams % (Auto) 9.6 % Eos % (Auto) 3.8 % Baso % (Auto) 0.8 % Neut # (Auto) 7.38 H (1.40-6.50) K/uL Lymph # (Auto) 1.54 (1.2-3.4) K/uL Adams # (Auto) 1.02 H (0.11-0.59) K/uL Eos # (Auto) 0.40 (0-0.50) K/uL Baso # (Auto) 0.09 (0-0.2) K/uL Immature Gran # (Auto) 0.16 (0.01-0.20) K/uL Absolute Nucleated RBC 0.02 (0-0.12) K/uL Nucleated RBC % (auto) 0.2 % Sodium 136 134 L (136-145) mmol/L Potassium 3.7 3.8 (3.5-5.1) mmol/L Chloride 103 100 (98-107) mmol/L Carbon Dioxide 29 30 (21-32) mmol/L Anion Gap 4 4 (3-11) BUN 14 15 (6-23) mg/dl Creatinine 0.61 0.51 L (0.6-1.2) mg/dl Est Cr Clr Drug Dosing 124.1 148.5 ml/min Est GFR ( Amer) 114.2 121.1 ml/min Est GFR (Non-Af Amer) 98.5 104.5 ml/min BUN/Creatinine Ratio 23.0 H 29.4 H (10-20) Glucose 101 H 156 H (70-99(Fasting)) mg/dl Calcium 8.1 L 8.0 L (8.5-10.1) mg/dl Total Bilirubin 1.8 H 1.3 H D (0.2-1.0) mg/dl AST 104 H 45 H (13-39) U/L ALT 146 H 56 H (7-52) U/L Alkaline Phosphatase 103 88 (34-104) U/L Total Protein 6.0 5.8 L (6.0-8.3) gm/dl Albumin 3.2 L 3.1 L (3.4-5.0) gm/dl Globulin 2.8 2.7 (2.5-4.0) gm/dl Albumin/Globulin Ratio 1.1 1.1 (0.9-2) 07/15/22 Range/Units 08:59 WBC 11.56 H (4.8-10.8) K/ul RBC 2.97 L (4.20-5.40) M/uL Hgb 8.7 L (12.0-16.0) g/dl Hct 26.3 L (37.0-47.0) % MCV 88.6 (80.0-100.0) fL MCH 29.3 (25.0-34.0) pg MCHC 33.1 (32.0-36.0) g/dL RDW Std Deviation 44.2 (36.4-46.3) fL RDW Coeff of Sea 13.9 (11.5-14.5) % Plt Count 282 (130-400) K/uL MPV 10.1 (9.4-12.4) fL Immature Gran % (Auto) 1.0 % Neut % (Auto) 77.9 % Lymph % (Auto) 12.6 % Adams % (Auto) 6.1 % Eos % (Auto) 2.0 % Baso % (Auto) 0.4 % Neut # (Auto) 9.01 H (1.40-6.50) K/uL Lymph # (Auto) 1.46 (1.2-3.4) K/uL Adams # (Auto) 0.70 H (0.11-0.59) K/uL Eos # (Auto) 0.23 (0-0.50) K/uL Baso # (Auto) 0.05 (0-0.2) K/uL Immature Gran # (Auto) 0.11 (0.01-0.20) K/uL Absolute Nucleated RBC 0.02 (0-0.12) K/uL Nucleated RBC % (auto) 0.2 % Sodium (136-145) mmol/L Potassium (3.5-5.1) mmol/L Chloride (98-107) mmol/L Carbon Dioxide (21-32) mmol/L Anion Gap (3-11) BUN (6-23) mg/dl Creatinine (0.6-1.2) mg/dl Est Cr Clr Drug Dosing ml/min Est GFR ( Amer) ml/min Est GFR (Non-Af Amer) ml/min BUN/Creatinine Ratio (10-20) Glucose (70-99(Fasting)) mg/dl Calcium (8.5-10.1) mg/dl Total Bilirubin (0.2-1.0) mg/dl AST (13-39) U/L ALT (7-52) U/L Alkaline Phosphatase (34-104) U/L Total Protein (6.0-8.3) gm/dl Albumin (3.4-5.0) gm/dl Globulin (2.5-4.0) gm/dl Albumin/Globulin Ratio (0.9-2)
[2022-07-16] MEDS ORDERED: ARTIFICIAL TEARS OP PRN (09:30)
[2022-07-16] MEDS: TOPIRAMATE 25 MG TAB PO SCH ×2 (09:34→20:16)
[2022-07-16] MEDS: SPIRONOLACTONE 25 MG TAB PO SCH ×2 (09:34→20:16)
[2022-07-16] MEDS: DOCUSATE SODIUM 100 MG CAP PO SCH ×2 (09:34→20:16)
[2022-07-16] MEDS ORDERED: LACTATED RINGER'S 1,000 ML IV SCH (09:45)
--- NOTE | 2022-07-16 10:11 | Gastrointestinal Consultation ---
Date of Consultation July 16, 2022 Assessment & Plan (1) Epigastric abdominal pain: (2) Elevated LFTs: (3) History of cholecystectomy: Plan This is a 62 y/o female who underwent cholecystectomy 07/11/22 who had been having abd pain, and now worsening LFTs, tbili up to 1.8, concern for post-op bile leak. MRCP w/ post-surgical changes, no fluid collection, CBD 5 mm. On exam abd soft, mild diffuse tenderness. VSS, afebrile. Other diff dx includes choledocholithiasis. - Will plan ERCP today to evaluate her symptoms and elevated LFts - Please keep NPO - Continue IVF - Continue ABX as per surgical team - Antiemetics PRN - Analgesia PRN - Trend LFTs Prior to endoscopic evaluation, we appreciate assistance in the management and correction of tellez laboratory elements including the following: Please optimize pt's hemoglobin >7, INR <2, platelets >50,000, potassium levels >3.5 but <5.3, and sodium levels within 5 points of the reference range. Thank you for allowing us to participate in the care of this patient. Please call with any acute changes, questions or concerns. Please see addendum below with additional recommendation from my supervising physician. Supervising Physician Co-Signing Physician Notes I saw and evaluated the patient on 07/16/22 with Rocío Kenny PA-C and agree with her findings and plan of care. 62 y/o F s/p lap artem on 07/11/22 now with elevation in her LFTs the past 2 days, RUQ abdominal pain concerning for post-op bile leak. MRCP with post-surgical changes but no fluid collection seen, no biliary dilation. YOKO drain with some bloody output as well as some bilious output. On exam she does have some mild abdominal tenderness, sclera anicteric. Will plan for ERCP today by Dr. Chilel. Remain NPO. Continue abx as per the surgical team. Trend daily LFTs. Sheyla Nielsen DO Gastroenterology and Hepatology History of Present Illness Reason for Consultation: pod#5 lap artem, increasing t. bili, ?bile leak Requesting Physician: Rocío Villalobos PA-C Attending Physician: Balwinder Jane MD History of Present Illness This is a 62 y/o female with PMHx HTN, Lymphedema, obesity, allergic rhinitis and others, who underwent lap artem 07/11/22 for symptomatic cholelithiasis, and we are asked to see her today as her liver enzymes have trended up and there is concern for post-op bile leak. Pre-op her LFTs were WNL; yesterday they started trended up and today they are up further still - tbili 1.8, AST 104, ALT 146. She has a normal ALP. She has had some bloody/bile tinged output from the YOKO drain. She had some post-op anemia requiring 2 units pRBC; HGB stable today at 9.5. WBC 18k->10.59. BUN, cr, Na, K WNL. She had MRCP showing expected postoperative changes, CBD of 5 mm and no drainable fluid collection. Had been having some more post-op pain and nausea though she states pain is somewhat improved, not requiring a significant amt of pain medicine. No fever overnight. No BM yesterday she had a BM the other day. No melena, hematochezia, ochoa stools. No jaundice, nausea, vomiting, hematemesis, CP, SOB. Only other surgery was . She drinks ETOH occasionally. No tobacco use. She uses daily NSAIDs - usually a few Motrin daily for knee pain. Allergies Allergy/AdvReac Type Severity Reaction Status Date / Time No Known Allergies Allergy Unknown Verified 07/11/22 07:27 Home Medications Medication Instructions Recorded Confirmed Type cetirizine 10 mg tablet (Zyrtec) 10 mg PO DAILY PRN Allergy Symptoms 05/13/18 07/11/22 History fluticasone propionate 50 2 spray intranasal DAILY PRN 05/13/18 07/11/22 History mcg/actuation nasal Allergy Symptoms spray,suspension (Flonase Allergy Relief) spironolactone 25 mg tablet 25 mg PO BID 07/11/22 07/11/22 History topiramate 25 mg tablet 25 mg PO BID 07/11/22 07/11/22 History oxycodone-acetaminophen 5 mg-325 1 tab PO Q6H PRN pain #12 tabs 07/16/22 Rx mg tablet Patient History Medical History Acute cholecystitis Dermatitis Seasonal allergies Social History Smoking Status: Never smoker Hx Alcohol Use: Yes Alcohol type: beer, wine and hard liquor Hx Substance Use: No Preferred Language: French Communication Ability: Effective Publication Director Required: No Beliefs That Will Affect Care: None Current Living Situation: Spouse current occupational status: employed Other Information That Helps Us Care for You: No Feels Safe at Home: Yes Assistive Devices: None Review of Systems Review of Systems: All systems reviewed & are unremarkable except as noted in HPI & below Physical Exam Constitutional: well developed, well nourished and comfortable; no acute distress (sitting up in bedside chair ) Eyes: Sclera anicteric, no conjunctival injection ENMT: moist mucous membranes, no pallor Neck: trachea midline supple Respiratory: normal respiratory effort, lungs clear to auscultation Cardiovascular: RRR, no murmur, no edema Gastrointestinal (Abdomen): Inspection/Auscultation: normal bowel sounds; abdomen not distended (+ blood in YOKO drain. Soft. Diffuse mildly tender around her operative sites) Skin: no rashes, warm and dry Neurologic: alert and oriented x 3, no obvious focal neuro deficit Psychiatric: normal mood and affect Results & Data ([facility]) Vital Signs (Past 12 Hours) Vital Signs Temp Pulse Resp BP Pulse Ox O2 Del Method O2 Flow Rate 07/16/22 07:19 36.8 C 88 14 148/87 H 94 Nasal Cannula 1 Laboratory Results 07/16/22 07/16/22 Range/Units 07:57 07:57 WBC 10.59 (4.8-10.8) K/ul RBC 3.27 L (4.20-5.40) M/uL Hgb 9.5 L (12.0-16.0) g/dl Hct 29.2 L (37.0-47.0) % MCV 89.3 (80.0-100.0) fL MCH 29.1 (25.0-34.0) pg MCHC 32.5 (32.0-36.0) g/dL RDW Std Deviation 44.1 (36.4-46.3) fL RDW Coeff of Sea 14.0 (11.5-14.5) % Plt Count 336 (130-400) K/uL MPV 9.8 (9.4-12.4) fL Immature Gran % (Auto) 1.5 % Neut % (Auto) 69.8 % Lymph % (Auto) 14.5 % Mccormick % (Auto) 9.6 % Eos % (Auto) 3.8 % Baso % (Auto) 0.8 % Neut # (Auto) 7.38 H (1.40-6.50) K/uL Lymph # (Auto) 1.54 (1.2-3.4) K/uL Mccormick # (Auto) 1.02 H (0.11-0.59) K/uL Eos # (Auto) 0.40 (0-0.50) K/uL Baso # (Auto) 0.09 (0-0.2) K/uL Immature Gran # (Auto) 0.16 (0.01-0.20) K/uL Absolute Nucleated RBC 0.02 (0-0.12) K/uL Nucleated RBC % (auto) 0.2 % Sodium 136 (136-145) mmol/L Potassium 3.7 (3.5-5.1) mmol/L Chloride 103 (98-107) mmol/L Carbon Dioxide 29 (21-32) mmol/L Anion Gap 4 (3-11) BUN 14 (6-23) mg/dl Creatinine 0.61 (0.6-1.2) mg/dl Est Cr Clr Drug Dosing 124.1 ml/min Est GFR ( Amer) 114.2 ml/min Est GFR (Non-Af Amer) 98.5 ml/min BUN/Creatinine Ratio 23.0 H (10-20) Glucose 101 H (70-99(Fasting)) mg/dl Calcium 8.1 L (8.5-10.1) mg/dl Total Bilirubin 1.8 H (0.2-1.0) mg/dl AST 104 H (13-39) U/L ALT 146 H (7-52) U/L Alkaline Phosphatase 103 (34-104) U/L Total Protein 6.0 (6.0-8.3) gm/dl Albumin 3.2 L (3.4-5.0) gm/dl Globulin 2.8 (2.5-4.0) gm/dl Albumin/Globulin Ratio 1.1 (0.9-2) Diagnostic Findings CTAP: Lung bases: Unremarkable. No mass. No consolidation. ABDOMEN: Liver: There is diffuse fatty infiltration of the liver. Gallbladder and bile ducts: There is cholelithiasis. Gallbladder is mildly distended, measuring up to 14.1 cm in length. No ductal dilation. Pancreas: Unremarkable. No mass. No ductal dilation. Spleen: Unremarkable. No splenomegaly. Adrenals: Unremarkable. No mass. Kidneys and ureters: Unremarkable. No solid mass. No hydronephrosis. Stomach and bowel: Unremarkable. No obstruction. No mucosal thickening. PELVIS: Appendix: No findings to suggest acute appendicitis. Bladder: Unremarkable. No mass. Reproductive: Unremarkable as visualized. ABDOMEN and PELVIS: Intraperitoneal space: Unremarkable. No free air. No significant fluid collection. Bones/joints: Moderate degenerative disc disease changes seen in the lumbar spine. Posterior disc osteophyte complex seen at L1/2 and L4/5 junction. No acute fracture. No dislocation. Soft tissues: Unremarkable. Vasculature: Unremarkable. No abdominal aortic aneurysm. Lymph nodes: Unremarkable. No enlarged lymph nodes. IMPRESSION: 1. Cholelithiasis and mildly distended gallbladder. If clinically indicated this can be further assessed on ultrasound study. 2. Fatty liver MRCP: Motion degraded exam. The study is also limited secondary to patient body habitus. Cardiomegaly. Small pleural effusions with dependent bibasilar consolidation favoring atelectasis. Degenerative changes are noted within the thoracolumbar spine with sigmoidal thoracolumbar scoliosis. Hepatic steatosis with hepatosplenomegaly. Mild to moderate pancreatic atrophy. Unremarkable ad renal glands and kidneys. No bowel obstruction or bowel wall thickening. Lateral abdominal wall subcutaneous edema is likely postoperative. Surgical drainage catheter is partially visualized. Postoperative changes of interval cholecystectomy. Air and fluid is noted within the tigre hepatis with small amount of fluid tracking along the inferior right hepatic lobe/pericolic gutter. No drainable fluid collection identified. Common bile duct measures 5 mm. Nondilated pancreatic duct. No choledocholithiasis or intrahepatic biliary ductal dilation. IMPRESSION: 1. Limited exam secondary to motion and patient body habitus. 2. Interval cholecystectomy with trace fluid and air within the tigre hepatis and small amount of fluid tracking along the right hepatic lobe and pericolic gutter, likely expected postoperative changes. 3. No postoperative drainable fluid collection. 4. Small pleural effusions. 5. No choledocholithiasis or biliary ductal dilation identified.
--- NOTE | 2022-07-16 11:03 | Anesthesiology Consultation ---
Date of Service July 16, 2022 Assessment & Plan Chart Review Chart Review: Acceptable Risk for Surgery and Patient NOT seen in Pre Admission Testing History Surgery Operation Date: 07/11/22 09:00 Proposed Procedures p Laparoscopic Cholecystectomy - Balwinder Jane MD Operation Date: 07/16/22 12:00 Proposed Procedures p Endoscopic Retrograde Cholangiopancreatogram - Rajiv Chilel MD Height/Weight Height: 5 ft 2 in Weight: 125.3 kg Allergies Allergy/AdvReac Type Severity Reaction Status Date / Time No Known Allergies Allergy Unknown Verified 07/11/22 07:27 Medications Home Medications Medication Instructions Recorded Confirmed Last Taken cetirizine 10 mg tablet (Zyrtec) 10 mg PO DAILY PRN Allergy Symptoms 05/13/18 07/11/22 Unknown fluticasone propionate 50 2 spray intranasal DAILY PRN 05/13/18 07/11/22 Unknown mcg/actuation nasal Allergy Symptoms spray,suspension (Flonase Allergy Relief) spironolactone 25 mg tablet 25 mg PO BID 07/11/22 07/11/22 07/10/22 topiramate 25 mg tablet 25 mg PO BID 07/11/22 07/11/22 07/10/22 Active Medications Generic Name Dose Route Start Last Admin Trade Name Freq PRN Reason Stop Dose Admin Docusate Sodium 100 mg 07/15/22 10:15 07/16/22 09:34 Docusate Sodium 100 Mg Cap PO 08/14/22 10:14 100 mg BID CEE Administration Famotidine 20 mg/ Syringe 5 mls @ 2.5 mls/min 07/11/22 18:00 07/16/22 05:13 IV 08/10/22 17:59 2.5 mls/min Q12H CEE Administration Piperacillin Sod/Tazobactam 115 mls @ 28.75 mls/hr 07/13/22 15:00 07/16/22 06:01 Sod 3.375 gm/ Dextrose IV 07/23/22 14:59 28.8 mls/hr Q8H CEE Administration Protocol Lorazepam 0.5 mg 07/14/22 12:41 07/14/22 16:31 Lorazepam 0.5 Mg Tab PO 08/13/22 12:44 0.5 mg Q6H PRN Administration Anxiety Morphine Sulfate 4 mg 07/11/22 11:35 07/12/22 23:13 Morphine Sulfate 4 Mg/Ml 1 Ml Carp\Vial IV 07/25/22 11:34 4 mg Q3H PRN Administration Pain (6,7,8,9,10) Morphine Sulfate 2 mg 07/11/22 11:35 07/13/22 05:12 Morphine Sulfate 2 Mg/Ml Carp IV 07/25/22 11:34 2 mg Q3H PRN Administration Pain (1,2,3,4,5) & Pre PT Ondansetron HCl 4 mg 07/11/22 11:35 07/12/22 13:25 Ondansetron Inj 2 Mg/Ml 2 Ml Vial IV 08/10/22 11:34 4 mg Q4H PRN Administration Nausea And Vomiting Oxycodone/Acetaminophen 2 tab 07/11/22 11:35 07/14/22 17:52 Oxycodone/Acetaminophen 5mg/325mg Tab PO 07/25/22 11:34 2 tab Q4H PRN Administration SEVERE Pain (7,8,9,10) Oxycodone/Acetaminophen 1 tab 07/11/22 11:35 07/15/22 22:21 Oxycodone/Acetaminophen 5mg/325mg Tab PO 07/25/22 11:34 1 tab Q4H PRN Administration MODERATE Pain (4,5,6) & Pre PT Spironolactone 25 mg 07/11/22 21:00 07/16/22 09:34 Spironolactone 25 Mg Tab PO 08/10/22 20:59 25 mg BID CEE Administration Topiramate 25 mg 07/11/22 21:00 07/16/22 09:34 Topiramate 25 Mg Tab PO 08/10/22 20:59 25 mg BID CEE Administration NPO Date Last Intake of Fluids: 07/11/22 Time Last Intake of Fluids: 02:00 Date Last Intake of Solids: 07/10/22 Time Last Intake of Solids: 19:30 Past Medical History Medical History Acute cholecystitis Dermatitis Seasonal allergies Social History Smoking Status: Never smoker Hx Alcohol Use: Yes Alcohol type: beer, wine and hard liquor alcohol intake frequency: a few times a week Hx Substance Use: No Physical Exam Vital Signs Last Vital Signs Temp 36.8 C 07/16/22 07:19 Pulse 88 07/16/22 07:19 Resp 14 07/16/22 07:19 BP 148/87 H 07/16/22 07:19 Pulse Ox 94 07/16/22 07:19 O2 Del Method Nasal Cannula 07/16/22 07:19 O2 Flow Rate 1 07/16/22 07:19 Testing Laboratory Results 07/16/22 07:57 07/16/22 07:57 PT 10.5 Seconds (9.0-12.0) 07/13/22 05:38 INR 1.0 (0.9-1.1) 07/13/22 05:38 APTT 23.9 Seconds (21.0-31.0) 07/13/22 05:38 Urine Color Yellow 07/11/22 07:02 Urine Appearance Clear (Clear) 07/11/22 07:02 Urine pH 7.0 (4.5-7.5) 07/11/22 07:02 Ur Specific [place] > 1.045 (1.000-1.030) H 07/11/22 07:02 Urine Protein Negative (Negative) 07/11/22 07:02 Urine Glucose (UA) Negative (Negative) 07/11/22 07:02 Urine Ketones Negative (Negative) 07/11/22 07:02 Urine Nitrite Negative (Negative) 07/11/22 07:02 Ur Leukocyte Esterase Negative (Negative) 07/11/22 07:02 Blood Type O Positive 07/12/22 23:38 Antibody Screen NEGATIVE 07/12/22 23:38 07/13/22 13:55 Urine Culture - Final Urine,Clean Catch No growth - less than 1,000 colonies/mL.
[2022-07-16] MEDS ORDERED: NALOXONE HCL 0.4 MG/1 ML VIAL/CARP IV PRN (15:17)
[2022-07-16] MEDS ORDERED: LABETALOL HCL IV 5 MG/ML 20ML IV PRN (15:17)
[2022-07-16] MEDS ORDERED: PROMETHAZINE HCL 12.5 MG in SODIUM CHLORIDE 0.9% 50 ML IV PRN (15:17)
[2022-07-16] MEDS ORDERED: fentaNYL citrate 100 MCG/2 ML VIAL IV PRN (15:17)
[2022-07-16] MEDS ORDERED: FLUMAZENIL 0.1 MG/1 ML 10 ML VIAL IV PRN (15:17)
[2022-07-16] MEDS ORDERED: ATROPINE SULFATE 0.1 MG/ML 10ML SYR IV PRN (15:17)
[2022-07-16] MEDS ORDERED: ePHEDrine sulfate 50 MG/ML AMP IV PRN (15:17)
[2022-07-16] MEDS ORDERED: ONDANSETRON INJ 2 MG/ML 2 ML VIAL IV PRN (15:17)
[2022-07-16] MEDS ORDERED: MIDAZOLAM HCL 1 MG/ML 2ML VIAL ONE (15:24)
--- NOTE | 2022-07-16 15:52 | History & Physical Bridge Note ---
Date of Service July 16, 2022 History & Physical Bridge Note I have examined the patient, reviewed the History & Physical and in the interval since the performance of the History & Physical I have noted the following changes of clinical significance: no changes noted
[2022-07-16] MEDS ORDERED: fentaNYL citrate 100 MCG/2 ML VIAL ONE (15:53)
[2022-07-16] MEDS ORDERED: INDOMETHACIN 50 MG SUPP PR ONE (16:01)
[2022-07-16] MEDS ORDERED: SUGAMMADEX SODIUM 200 MG/2 ML VIAL IV ONE (16:30)
--- NOTE | 2022-07-16 16:36 | Operative Report ---
Post Operative Report Pre & Post Diagnosis Operation Date: 07/16/22 12:00 Pre-Op Diagnosis: ACUTE CHOLECYSTITIS W/HYDROPS I identified the patient and participated in the time-out.: Yes Procedure Operation Date: 07/16/22 12:00 <No data on this case meets the specified criteria> Surgeon Rajiv Chilel MD [employer] Supervisor none Estimated Blood Loss 35 Findings See Below (Bile leak from the duct of Luschka. stent placed) Specimens None Description of Procedure ERCP I attest to the content of the Intraoperative Record and any orders documented therein. Any exceptions are noted below.
[2022-07-16] MEDS ORDERED: PROPOFOL IV EMULSION 10 MG/ML 20 ML VIAL IV ONE (16:45)
[2022-07-16] MEDS ORDERED: ONDANSETRON INJ 2 MG/ML 2 ML VIAL ONE (16:45)
[2022-07-16] MEDS ORDERED: ROCURONIUM BROMIDE 10 MG/ML 5 ML VIAL IV ONE (16:45)
--- NOTE | 2022-07-16 17:19 | Anesthesiology Progress Note ---
Date of Service July 16, 2022 Anesthesia Post Procedure Vital Signs Vital Signs: Temp Pulse Pulse Resp BP Pulse Ox O2 Del Method 07/16/22 17:10 87 22 153/78 H 93 Room Air 07/16/22 17:00 82 13 157/89 H 99 Oxymask 07/16/22 16:50 37.1 C 89 20 160/81 H 98 Oxymask 07/16/22 14:54 37 C 87 30 H 160/82 H 92 Room Air, Nasal Cannula 07/16/22 07:19 36.8 C 88 14 148/87 H 94 Nasal Cannula 07/15/22 22:00 36.9 C 76 16 151/84 H 95 Nasal Cannula 07/15/22 21:15 Nasal Cannula O2 Flow Rate 07/16/22 17:10 07/16/22 17:00 12 07/16/22 16:50 12 07/16/22 14:54 1 07/16/22 07:19 1 07/15/22 22:00 1 07/15/22 21:15 1 Pain Intensity Chest: Pain Intensity: 4 Abdomen: Pain Intensity: 4 Right Upper Abdomen: Pain Intensity: 4 Transfer of Care Handoff Completed per policy Notes Mental Status: alert / awake / arousable and participated in evaluation Patient Amnestic to Procedure: Yes Nausea / Vomiting: adequately controlled Pain: adequately controlled Airway Patency, RR, SpO2: stable & adequate BP & HR: stable & adequate Hydration State: stable & adequate Anesthetic Complications: no major complications apparent and Pt Satisfied with anesthetic care
--- NOTE | 2022-07-16 17:42 | Anesthesiology Progress Note ---
Date of Service July 16, 2022 Anesthesia Post Procedure Vital Signs Vital Signs: Temp Pulse Pulse Resp BP Pulse Ox O2 Del Method 07/16/22 17:20 36.6 C 76 22 152/72 H 97 Nasal Cannula 07/16/22 17:10 87 22 153/78 H 93 Room Air 07/16/22 17:00 82 13 157/89 H 99 Oxymask 07/16/22 16:50 37.1 C 89 20 160/81 H 98 Oxymask 07/16/22 14:54 37 C 87 30 H 160/82 H 92 Room Air, Nasal Cannula 07/16/22 07:19 36.8 C 88 14 148/87 H 94 Nasal Cannula 07/15/22 22:00 36.9 C 76 16 151/84 H 95 Nasal Cannula 07/15/22 21:15 Nasal Cannula O2 Flow Rate 07/16/22 17:20 2 07/16/22 17:10 07/16/22 17:00 12 07/16/22 16:50 12 07/16/22 14:54 1 07/16/22 07:19 1 07/15/22 22:00 1 07/15/22 21:15 1 Pain Intensity Chest: Pain Intensity: 4 Abdomen: Pain Intensity: 4 Right Upper Abdomen: Pain Intensity: 4 Transfer of Care Handoff Completed per policy Notes Mental Status: alert / awake / arousable Patient Amnestic to Procedure: Yes Nausea / Vomiting: adequately controlled Pain: adequately controlled Airway Patency, RR, SpO2: stable & adequate BP & HR: stable & adequate Hydration State: stable & adequate Anesthetic Complications: no major complications apparent
--- NOTE | 2022-07-16 17:51 | GI REPORT ---
Patient Name: Kiara Bocanegra Procedure Date: 07/16/2022 3:54 PM Date of : 1960 Admit Type: Inpatient Age: 62 Gender: Female Attending MD: Rajiv Chilel MD, Procedure: ERCP Providers: Rajiv Chilel MD Referring MD: Balwinder Jane MD Indications: Treatment of bile leak Medicines: General Anesthesia Complications: No immediate complications. Estimated Blood Loss: Estimated blood loss: none. Procedure: Pre-Anesthesia Assessment: - Prior to the procedure, a History and Physical was performed, and patient medications, allergies and sensitivities were reviewed. The patient's tolerance of previous anesthesia was reviewed. - The risks and benefits of the procedure and the sedation options and risks were discussed with the patient. All questions were answered and informed consent was obtained. - Patient identification and proposed procedure were verified prior to the procedure by the physician and the nurse. The procedure was verified in the procedure room. - Pre-procedure physical examination revealed no contraindications to sedation. After obtaining informed consent, the scope was passed under direct vision. Throughout the procedure, the patient's blood pressure, pulse, and oxygen saturations were monitored continuously. The Duodenoscope was introduced through the mouth, and advanced to the duodenum and used to inject contrast into the bile duct. The ERCP was accomplished without difficulty. The patient tolerated the procedure well. Findings: A career resource specialist film of the abdomen was obtained. Surgical clips, consistent with a previous cholecystectomy, were seen in the area of the right upper quadrant of the abdomen. The esophagus was successfully intubated under direct vision. The scope was advanced to a normal major papilla in the descending duodenum without detailed examination of the pharynx, larynx and associated structures, and upper GI tract. The upper GI tract was grossly normal. A 0.025 inch x 270 cm angled Visiglide wire was passed into the biliary tree. The short-nosed traction sphincterotome was passed over the guidewire and the bile duct was then deeply cannulated. Contrast was injected. I personally interpreted the bile duct images. Ductal flow of contrast was adequate. Image quality was adequate. Contrast extended to the main bile duct. Opacification of the entire biliary tree except for the gallbladder was successful. The maximum diameter of the ducts was 8 mm. Extravasation of contrast originating from the accessory duct. Biliary sphincterotomy was made with a monofilament traction (standard) sphincterotome using ERBE electrocautery. There was no post-sphincterotomy bleeding. The biliary tree was swept with an 11.5 mm balloon starting at the bifurcation. Nothing was found. One 10 Fr by 10 cm plastic biliary stent with a single external flap and a single internal flap was placed into the common bile duct. Bile flowed through the stent. The stent was in good position. Indomethacin 100 mg was given via suppository to decrease the risk of post-ERCP pancreatitis (PEP). Impression: - A bile leak from the duct of Luschka was found. - A biliary sphincterotomy was performed. - One plastic biliary stent was placed into the common bile duct. Recommendation: - [facility]. - Clear liquid diet today. - Repeat ERCP in 2 months to remove stent. Rajiv Chilel MD 07/16/2022 5:51:04 PM This report has been signed electronically. Note Initiated On: 07/16/2022 3:54 PM Number of Addenda: 0 I attest to the content of the Intraoperative Record and orders documented therein, exceptions below {[id number]}
--- NOTE | 2022-07-16 18:46 | Fluoroscopy Report ---
INTRAOPERATIVE RADIOGRAPHS CLINICAL HISTORY: ERCP Fluoro time: 54 seconds. Exposure: 52.40 mGy FINDINGS: 10 spot fluoroscopic views of the right upper quadrant from an ERCP procedure are correlate d with MRCP dated 07/14/2022. Cholecystectomy clips are noted. A wire is advanced into the common bile duct which appears mildly dilated. A balloon sweep of the common duct is performed. The final image s hows a common bile duct stent in appropriate position. There is no intrahepatic biliary ductal dilata tion. IMPRESSION: Intraoperative ERCP images as above. See operative report for detailed findings. Electronically signed by: Cristopher Elaine M.D. 07/16/2022 6:44 PM
[2022-07-17] MEDS: PIPERACILLIN/TAZOBACTAM 3.375 GM in DEXTROSE 5% 100 ML IV SCH ×3 (06:01→22:55)
[2022-07-17] MEDS: FAMOTIDINE 20 MG in SYRINGE 3 ML IV SCH ×2 (06:01→17:23)
[2022-07-17 07:04] LABS: Albumin Globulin Ratio 1.1 (0.9-2); Albumin Level 3.1 gm/dl (3.4-5.0); BUN Creatinine Ratio 22.8 (10-20); Bilirubin,Total 1.2 mg/dl (0.2-1.0); Creatinine Clr Calc Pharmacy 132.9 ml/min; Est GFR (African American) 116.8 ml/min; Est GFR (Non-African American) 100.8 ml/min; Globulin 2.7 gm/dl (2.5-4.0); Potassium 3.9 mmol/L (3.5-5.1); Total Protein 5.8 gm/dl (6.0-8.3)
[2022-07-17 07:23] LABS: Basophils # (auto) 0.07 K/uL (0-0.2); Basophils % (auto) 0.6 %; Eosinophils # (auto) 0.53 K/uL (0-0.50); Eosinophils % (auto) 4.8 %; Hematocrit (blood only) 28.3 % (37.0-47.0); Hemoglobin 9.2 g/dl (12.0-16.0); Immature Granulocytes # (auto) 0.22 K/uL (0.01-0.20); Lymphocytes # (auto) 1.68 K/uL (1.2-3.4); Lymphocytes % (auto) 15.3 %; Mean Corpuscular Hemoglobin 29.4 pg (25.0-34.0); Mean Corpuscular Hgb Conc 32.5 g/dL (32.0-36.0); Mean Corpuscular Volume 90.4 fL (80.0-100.0); Mean Platelet Volume 9.6 fL (9.4-12.4); Monocytes # (auto) 1.13 K/uL (0.11-0.59); Monocytes % (auto) 10.3 %; Neutrophils # (auto) 7.35 K/uL (1.40-6.50); Platelet Count 325 K/uL (130-400); RDW Coefficient of Variation 14.2 % (11.5-14.5); Red Blood Count 3.13 M/uL (4.20-5.40); White Blood Count 10.98 K/ul (4.8-10.8)
[2022-07-17] MEDS: SPIRONOLACTONE 25 MG TAB PO SCH ×2 (08:18→20:22)
[2022-07-17] MEDS: DOCUSATE SODIUM 100 MG CAP PO SCH ×2 (08:18→20:22)
[2022-07-17] MEDS: TOPIRAMATE 25 MG TAB PO SCH ×2 (08:18→20:22)
--- NOTE | 2022-07-17 11:06 | Surgery Progress Note ---
Date of Service July 17, 2022 Assessment & Plan (1) Bile leak: Plan: Patient status post ERCP yesterday Stent placed Feeling much better today Advancing diet and possible plan for discharge tomorrow Admission and Anticipated Discharge Date Admission Date: July 14, 2022 Results & Data ([facility] Vital Signs (Past 12 Hours) Vital Signs Temp Pulse Resp BP Pulse Ox O2 Del Method 07/17/22 08:18 Room Air 07/17/22 07:21 37.1 C 72 18 111/71 94 Room Air 07/17/22 03:20 36.9 C 75 18 116/72 93 Room Air PG Care Time/CCT Total # of Minutes Spent Total Time Spent with Patient: Total time spent is greater than 50% in coordination of care (as documented) at patient's floor/unit and/or counseling patient: Coding Level of Care Code None Diagnoses Bile leak K83.9
[2022-07-17] MEDS: oxyCODONE/ACETAMINOPHEN 5mg/325mg TAB PO PRN (19:34)
[2022-07-18] MEDS: PIPERACILLIN/TAZOBACTAM 3.375 GM in DEXTROSE 5% 100 ML IV SCH (06:01)
[2022-07-18] MEDS: FAMOTIDINE 20 MG in SYRINGE 3 ML IV SCH (06:02)
[2022-07-18 06:41] LABS: Basophils # (auto) 0.09 K/uL (0-0.2); Basophils % (auto) 0.7 %; Eosinophils # (auto) 0.59 K/uL (0-0.50); Eosinophils % (auto) 4.8 %; Hematocrit (blood only) 28.8 % (37.0-47.0); Hemoglobin 9.5 g/dl (12.0-16.0); Immature Granulocytes # (auto) 0.39 K/uL (0.01-0.20); Immature Granulocytes % (auto) 3.2 %; Lymphocytes # (auto) 1.96 K/uL (1.2-3.4); Lymphocytes % (auto) 15.9 %; Mean Corpuscular Hemoglobin 29.2 pg (25.0-34.0); Mean Corpuscular Volume 88.6 fL (80.0-100.0); Mean Platelet Volume 9.7 fL (9.4-12.4); Monocytes # (auto) 1.12 K/uL (0.11-0.59); Monocytes % (auto) 9.1 %; Neutrophils # (auto) 8.21 K/uL (1.40-6.50); Neutrophils % (auto) 66.3 %; Platelet Count 358 K/uL (130-400); RDW Coefficient of Variation 14.4 % (11.5-14.5); RDW Standard Deviation 44.6 fL (36.4-46.3); Red Blood Count 3.25 M/uL (4.20-5.40); White Blood Count 12.36 K/ul (4.8-10.8)
[2022-07-18] MEDS: SPIRONOLACTONE 25 MG TAB PO SCH (08:27)
[2022-07-18] MEDS: TOPIRAMATE 25 MG TAB PO SCH (08:27)
[2022-07-18] MEDS: DOCUSATE SODIUM 100 MG CAP PO SCH (08:27)
[2022-07-18 08:38] LABS: Albumin Globulin Ratio 1.1 (0.9-2); Albumin Level 3.2 gm/dl (3.4-5.0); BUN Creatinine Ratio 22.2 (10-20); Bilirubin,Total 0.9 mg/dl (0.2-1.0); Calcium 7.9 mg/dl (8.5-10.1); Creatinine Clr Calc Pharmacy 120.2 ml/min; Est GFR (Non-African American) 97.5 ml/min; Globulin 2.9 gm/dl (2.5-4.0); Potassium 3.8 mmol/L (3.5-5.1); Total Protein 6.1 gm/dl (6.0-8.3)
--- NOTE | 2022-07-18 08:46 | Surgery Progress Note ---
Date of Service July 18, 2022 Assessment & Plan (1) Bile leak: Plan: 07/18/2022 2 days s/p ERCP for bile leak. Kiara is feeling much better today and is tolerating a regular diet without issue. Discharge to home today. She is aware that YOKO drain will stay in place at discharge. Discharge instructions reviewed. 07/17/2022 Patient status post ERCP yesterday Stent placed Feeling much better today Advancing diet and possible plan for discharge tomorrow Admission and Anticipated Discharge Date Admission Date: July 14, 2022 Subjective Patient resting in bed, eating breakfast. She reports that she is feeling well. She denies nausea or vomiting. She is ready for discharge today. Review of Systems Constitutional: no fever and no chills Respiratory: no cough, no chest congestion, no dyspnea and no dyspnea on exe rtion Gastrointestinal: + abdominal pain (expected, at incision sites. ); no nausea and no vomiting Physical Exam Constitutional: WD/WN, vitals as above + morbidly obese, cooperative and comfortable; no acute distress and not ill appearing Respiratory: normal respiratory effort; no respiratory distress, no labored breathing and no retractions on room air Gastrointestinal (Abdomen): Inspection/Auscultation: abdomen normal to inspection and + abdominal surgical drain present (more serosang today. ); abdomen not distended Percussion/Palpation: + abdomen tender (RUQ and RLQ and at drain site) and abdomen soft; no guarding and abdomen not rigid Skin: no rashes, warm and dry no jaundice Psychiatric: Orientation: alert and oriented x 3 Results & Data ([facility]) Vital Signs (Past 12 Hours) Vital Signs Temp Pulse Resp BP Pulse Ox O2 Del Method 07/18/22 06:52 37.4 C 73 132/71 93 Room Air 07/17/22 21:40 37.2 C 73 17 127/76 95 Room Air PG Care Time/CCT Total # of Minutes Spent Total Time Spent with Patient: Total time spent is greater than 50% in coordination of care (as documented) at patient's floor/unit and/or counseling patient: Coding Level of Care Code 01710 Post Operative Follow-Up Diagnoses Bile leak K83.9
[2022-07-18] MEDS: oxyCODONE/ACETAMINOPHEN 5mg/325mg TAB PO PRN (09:48)
== END 2022-07-18 11:34 | disposition home or self-care (01) | DRG 418 ==
LOC: ED 04:20 → 3W 08:42 → OR 08:42